=== PATIENT | female | born 1990 | race Caucasian/White ===

== ENCOUNTER → 2020-01-18 14:31 | Outpatient (BNVA) | payer OTHER, SELFPAY | PROVIDERS: PCP Physician Assistant; Visit Provider Surgery | DX: K80.10 Calculus of gallbladder with chronic cholecystitis without obstruction (principal); Z88.2 Allergy status to sulfonamides; Z88.8 Allergy status to other drugs, medicaments and biological substances; Z88.1 Allergy status to other antibiotic agents; Z91.010 Allergy to peanuts; Z91.013 Allergy to seafood; Z79.899 Other long term (current) drug therapy | CPT/HCPCS: 99212 ==

== ENCOUNTER 2020-01-27 06:28 | Day surgery (SDC) | payer OTHER, SELFPAY ==
[2020-01-24 08:51] VITALS: BMI 44.4
--- NOTE | 2020-01-25 14:33 | HO.ANESPROP2 ---
Documented by User: Jackie Cm 01/25/20 14:38 HPI - Anesthesia Eval Consult details Narrative: 29yo F for Cholecystectomy, Laparoscopic PMFSH Past Medical History Medical History Asthma Chronic calculous cholecystitis Eczema Heart murmur Family History Family History (Updated 01/18/20 @ 16:09 by Chan Pizano MD) Father Diabetes Mother Hypertension Maternal Grandmother ID (myocardial infarction) Social History Social History Smoking Status: Never smoker Advance Directives Information Provided: No Meds Allergies Allergy/AdvReac Type Severity Reaction Status Date / Time amoxicillin [AMOXICILLIN] Allergy Intermediate SWELLING Verified 01/24/20 08:54 cefaclor [From Ceclor] Allergy Intermediate SWELLING Verified 01/24/20 08:54 doxycycline Allergy Intermediate swelling Verified 01/24/20 08:54 peanut [PEANUTS] Allergy Intermediate HIVES Verified 01/24/20 08:54 shrimp [SHRIMP] Allergy Intermediate THROAT Verified 01/24/20 08:54 ITCHING Sulfa (Sulfonamide Allergy Intermediate SWELLING Verified 01/24/20 08:54 Antibiotics) sulfamethoxazole Allergy Intermediate SWELLING Verified 01/24/20 08:54 [From Bactrim] trimethoprim [From Bactrim] Allergy Intermediate CEFACLOR Verified 01/24/20 08:54 ceclor Allergy Intermediate swelling Uncoded 01/24/20 08:54 Home Medications Medication Instructions Recorded Confirmed Type albuterol sulfate 90 mcg/actuation 2 puff PO Q4H PRN 01/18/20 01/24/20 History aerosol inhaler hydrocortisone TOPICAL BID 01/24/20 History Exam Exam Date and Time: January 25, 2020 1433 Height,Weight and Vital Signs: Height 5 ft 3 in Weight 113.852 kg Pertinent Lab Results Pertinent Lab Results: Laboratory Tests 11/19/19 11/19/19 23:41 23:41 WBC 10.6 Hgb 12.6 Hct 40.0 Plt Count 327 Sodium 138 Potassium 4.1 Chloride 104 BUN 7 L Creatinine 0.69 Narrative Narrative: Echo 2017: nml study, no valve abnormalities Assessment and Plan Assessment Anesthesia Assessment: Chart Reviewed Documented by User: Salvatore Ash 01/27/20 07:16 HPI - Anesthesia Eval Consult details Narrative: No prev anesth. No Fhx of prob w anes. PMFSH Past Medical History Medical History Asthma Chronic calculous cholecystitis Eczema Heart murmur Family History Family History (Updated 01/18/20 @ 16:09 by Chan Pizano MD) Father Diabetes Mother Hypertension Maternal Grandmother ID (myocardial infarction) Social History Social History Smoking Status: Never smoker Advance Directives Information Provided: No Meds Allergies Allergy/AdvReac Type Severity Reaction Status Date / Time amoxicillin [AMOXICILLIN] Allergy Intermediate SWELLING Verified 01/24/20 08:54 cefaclor [From Ceclor] Allergy Intermediate SWELLING Verified 01/24/20 08:54 doxycycline Allergy Intermediate swelling Verified 01/24/20 08:54 peanut [PEANUTS] Allergy Intermediate HIVES Verified 01/24/20 08:54 shrimp [SHRIMP] Allergy Intermediate THROAT Verified 01/24/20 08:54 ITCHING Sulfa (Sulfonamide Allergy Intermediate SWELLING Verified 01/24/20 08:54 Antibiotics) sulfamethoxazole Allergy Intermediate SWELLING Verified 01/24/20 08:54 [From Bactrim] trimethoprim [From Bactrim] Allergy Intermediate CEFACLOR Verified 01/24/20 08:54 ceclor Allergy Intermediate swelling Uncoded 01/24/20 08:54 Home Medications Medication Instructions Recorded Confirmed Type albuterol sulfate 90 mcg/actuation 2 puff PO Q4H PRN 01/18/20 01/24/20 History aerosol inhaler hydrocortisone TOPICAL BID 01/24/20 History Exam Airway Mallampati Class: I TM Dist: >3cm Neck ROM: Full Loose/Missing/Broken Teeth: No Heart: ok Lungs: ok Assessment and Plan Assessment Anesthesia Assessment: Anesthesia Plan Discussed and Chart Reviewed Final Anesthetic Review NPO: Yes ASA Class: III Final Preanesthetic Review: No Changes in Pt Med Stat, Meds/Allgs Chart Reviewed, Consent Obtained/Reviewed and Anes Risks/Benef Reviewed Patient Risk: Intermediate Procedure Risk: Intermediate Anesthetic Plan Anesthetic Plan: GA and Agree w/ Assess. and Plan Disposition: Standard PACU
[2020-01-27] VITALS (11 sets, daily range): BP systolic 125–150; BP diastolic 69–85; PULSE 90–127; RESP 16–18; TEMP 36.2–37.2; O2SAT 92–98
[2020-01-27 05:58] LABS: UPreg QC Valid YES
[2020-01-27 05:59] LABS: Urine Pregnancy NEGATIVE (NEGATIVE)
[2020-01-27] MEDS: Lactated Ringers 1,000 ML 100 ML IVCONT (06:54)
[2020-01-27] MEDS: Acetaminophen 325 MG TABLET 650 MG PO (06:55)
[2020-01-27] MEDS: metroNIDAZOLE/NS 500 MG/100 ML PIGGYBACK 100 MG IV (06:56)
--- NOTE | 2020-01-27 07:29 | MHC.SHP ---
Pre-Procedural Eval Section A The patient is an INPATIENT: No Changes since office visit: Yes Patient answered all questions; No Cold of Flu in the past 2 weeks, No New Medical Problems and No Changes in Medication The History & Physical has been completed within 30 days and I have reviewed it.: Yes Section B Chief Complaint: Chronic Cholecystitis Allergies: Allergies Allergy/AdvReac Type Severity Reaction Status Date / Time amoxicillin [AMOXICILLIN] Allergy Intermediate SWELLING Verified 01/24/20 08:54 cefaclor [From Ceclor] Allergy Intermediate SWELLING Verified 01/24/20 08:54 doxycycline Allergy Intermediate swelling Verified 01/24/20 08:54 peanut [PEANUTS] Allergy Intermediate HIVES Verified 01/24/20 08:54 shrimp [SHRIMP] Allergy Intermediate THROAT Verified 01/24/20 08:54 ITCHING Sulfa (Sulfonamide Allergy Intermediate SWELLING Verified 01/24/20 08:54 Antibiotics) sulfamethoxazole Allergy Intermediate SWELLING Verified 01/24/20 08:54 [From Bactrim] trimethoprim [From Bactrim] Allergy Intermediate CEFACLOR Verified 01/24/20 08:54 ceclor Allergy Intermediate swelling Uncoded 01/24/20 08:54 Plan Diagnosis/Plan: Unchanged Patient has been examined and remains a candidate for the planned procedure
--- NOTE | 2020-01-27 07:41 | P.BOP_ITS ---
Brief Operative Note Date of procedure: 01/27/20 Pre-op diagnosis: Chronic cholecystitis, cholelithiasis Post-op diagnosis: same Procedure: Laparoscopic cholecystectomy Implants: none Surgeon: Chan Pizano MD Anesthesia: MARIANA Spinneret Person: Debora Moore Estimated blood loss (mL): 10 Pathology: other (GALLBLADDER) Condition: stable Disposition: PACU
--- NOTE | 2020-01-27 09:06 | W.PM.OPN ---
Operative Note Operative Note Date of Service: 01/27/20 Narrative: Preoperative diagnosis: Chronic cholecystitis Postoperative diagnosis same Procedure: Laparoscopic cholecystectomy Surgeon: Chan Pizano MD Automotive Manufacturer: ANIKET Brush Indications for procedure: 29-year-old female with complaints of abdominal pain intermittently in the right upper quadrant associated with fatty food intake. Patient underwent ultrasound which revealed multiple gallstones patient presents today for laparoscopic cholecystectomy. Operative findings: Patient was found to have a moderately inflamed gallbladder with no adhesions. Multiple large gallstones were noted within the gallbladder. Specimen: Gallbladder Estimated blood loss: 10 mL Complications: Non Procedure details: Patient was brought to the OR and placed in a supine position. After administering general anesthesia the patient's abdomen was prepped with ChloraPrep and draped in a sterile fashion. Local anesthesia consisting of 0.75% Sensorcaine with epinephrine was infiltrated in a periumbilical region. A 5 mm incision was made above the umbilicus in a transverse fashion. The Veress needle was then inserted while elevating abdominal cavity with towel clips. After positive drop test the abdomen was insufflated to a pressure of 15 mm of mercury. The Veress needle was then removed and a 5 mm trocar inserted. The camera was inserted in the abdomen explored. A 12 mm trocar was then placed in the epigastrium and 2 5 mm trocars placed in the right upper quadrant. The patient was placed in reverse Trendelenburg positioning and rotated to the left. The gallbladder was grasped with the fundus and retracted cephalad.. The infundibulum Was then grasped and retracted away from the liver bed. The Dolphin dissected was then used to dissect the peritoneum off the infundibulum to reveal the junction with the cystic duct. Cystic artery was noted slightly medial and posterior to the cystic duct. After obtaining a critical view the cystic duct was doubly clipped and divided. The cystic artery was then doubly clipped and divided. The gallbladder was then dissected off the liver bed using electrocautery with an L hook. Hemostasis was assured all times using the electrocautery. When the gallbladder is completely dissected off the liver bed was placed in an Endo-Catch bag and brought out through the epigastric incision. The gallbladder was sent to pathology for further examination. The abdomen was then re-examined. The liver bed was irrigated and suctioned dry. No bleeding or bile leak could be identified. CO2 was then evacuated and all trocars removed. Fascia was closed at the epigastric incision using a [id number] 0 Polysorb suture. Skin was closed in all incisions using a subcuticular 4 0 Polysorb suture. Sterile dressings consisting of Steri-Strips, 2 x 2 gauze, and Tegaderm were then applied. The patient tolerated the procedure well. Sponge instrument and needle counts reported as correct. The patient was transferred to PACU in stable condition.
[2020-01-27] MEDS: ondansetron HCL 4 MG/2 ML VIAL IVPUSH (09:10)
[2020-01-27] MEDS: oxyCODONE HCl Immed Release 5 MG TABLET PO (09:12)
--- NOTE | 2020-01-27 10:37 | HO.POSTANES ---
Post Anesthesia Evaluation Post Anesthesia Evaluation Vital Signs: Vital Signs Temp Pulse Resp BP Pulse Ox 01/27/20 10:24 102 H 16 132/74 96 01/27/20 10:09 91 16 139/72 98 01/27/20 09:54 97 16 128/84 98 01/27/20 09:39 94 16 150/71 H 98 01/27/20 09:24 90 18 125/75 98 01/27/20 09:09 91 16 145/81 H 96 01/27/20 09:04 98 18 141/84 H 97 01/27/20 08:59 101 H 18 149/69 H 96 01/27/20 08:54 99.0 F 127 H 18 130/85 92 01/27/20 06:29 98.6 F 93 18 136/83 97 Anesthesia: General Endotracheal-GETA Mental Status: Awake Pain Control: Satisfactory Nausea/Vomiting: Mild Hydration: Adequate Anesthesia-Related Issues: No Anes. Related Issues
== END 2020-01-27 11:21 | disposition home or self-care (01) ==
PROVIDERS: Nurse Practitioner; Visit Provider Surgery
PROC: 0FT44ZZ Resection of Gallbladder, Percutaneous Endoscopic Approach (ICD-10-PCS; CPT 47562; principal; 2020-01-27 07:30)
DX: K80.10 Calculus of gallbladder with chronic cholecystitis without obstruction (principal); J45.909 Unspecified asthma, uncomplicated; Z79.899 Other long term (current) drug therapy; Z88.1 Allergy status to other antibiotic agents; Z88.2 Allergy status to sulfonamides; Z88.8 Allergy status to other drugs, medicaments and biological substances; L30.9 Dermatitis, unspecified
CPT/HCPCS: 47562; 81025; 88304; J1100; J1170; J2250; J2405; J3010

== ENCOUNTER → 2020-02-04 09:41 | Outpatient (BNVA) | payer OTHER, SELFPAY | PROVIDERS: Visit Provider Surgery | DX: Z09 Encounter for follow-up examination after completed treatment for conditions other than malignant neoplasm (principal); Z87.19 Personal history of other diseases of the digestive system; Z90.49 Acquired absence of other specified parts of digestive tract | CPT/HCPCS: 99212 ==

== ENCOUNTER 2020-03-05 22:44 | Emergency (ER) | payer OTHER, SELFPAY ==
[2020-03-05 22:51] VITALS: BP 134/81; BP 138/32; PULSE 112; PULSE 120; RESP 15; TEMP 36.7; O2SAT 98; O2SAT 99; BMI 40.7
--- NOTE | 2020-03-05 22:59 | ED_ITS ---
HPI - SOB/Dyspnea General Chief Complaint: Dyspnea Stated Complaint: ASTHMA (98%RA),NO COVID SX PER EMS Time Seen by Provider: 03/05/20 22:49 Source: patient Mode of arrival: EMS Limitations: no limitations History of Present Illness HPI Narrative: Patient comes emergency room complaining of an asthma exacerbation. Patient states she has been having shortness of breath and wheezing for 3 days. Patient tried using her albuterol pump with no relief. Patient states she usually responds well to an albuterol nebulizations, however she ran out of her albuterol neb medication several months ago. Patient came by ambulance, she did not get any Solu-Medrol or nebulization treatment, as patient has been speaking in full sentences and has an oxygen saturation of 99% on room air. Related Data Home Medications Medication Instructions Recorded Confirmed albuterol sulfate 90 mcg/actuation 2 puff PO Q4H PRN 01/18/20 03/05/20 aerosol inhaler hydrocortisone 1 appl TOPICAL BID 01/24/20 03/05/20 Previous Rx's Medication Instructions Recorded albuterol sulfate 2.5 mg INHALATION Q4-6H PRN #90 ml 03/06/20 prednisone 50 mg PO DAILY #4 tab 03/06/20 Allergies Allergy/AdvReac Type Severity Reaction Status Date / Time amoxicillin [AMOXICILLIN] Allergy Intermediate SWELLING Verified 03/05/20 22:57 cefaclor [From Ceclor] Allergy Intermediate SWELLING Verified 03/05/20 22:57 doxycycline Allergy Intermediate swelling Verified 03/05/20 22:57 peanut [PEANUTS] Allergy Intermediate HIVES Verified 03/05/20 22:57 shrimp [SHRIMP] Allergy Intermediate THROAT Verified 03/05/20 22:57 ITCHING Sulfa (Sulfonamide Allergy Intermediate SWELLING Verified 03/05/20 22:57 Antibiotics) sulfamethoxazole Allergy Intermediate SWELLING Verified 03/05/20 22:57 [From Bactrim] trimethoprim [From Bactrim] Allergy Intermediate CEFACLOR Verified 03/05/20 22:57 ceclor Allergy Intermediate swelling Uncoded 03/05/20 22:57 Review of Systems Review of Systems: Constitutional : No Weight loss, No Fever, No Chills, No Night Sweats, No Fatigue, No Malaise ENT/Mouth : No Hearing loss, No Ear Pain, No Nasal Congestion, No Sinus Pain, No Hoarseness, No sore throat, No Rhinorrhea, No Swallowing Difficulty Eyes: No Eye Pain, No Swelling, No Redness, No Foreign Body, No Discharge, No Vision Changes Cardiovascular : No Chest Pain, No SOB, No Dyspnea on Exertion, No Orthopnea, No Edema, No Palpitations Respiratory : No Cough, No Sputum, complaining of wheezing and shortness of breath Gastrointestinal : No Nausea, No Vomiting, No Diarrhea, No Constipation, No abdominal Pain, No Hematochezia, No Melena Genitourinary : no irregular bleeding, No Dysuria, No Urinary Frequency, No Hematuria, No Urinary Incontinence, No Urgency, No Flank Pain, No Urinary Flow Changes, No Hesitancy Musculoskeletal : No joint pain, No Myalgias, No Joint Swelling Skin : No Skin Lesions, No rash Neuro : No Weakness, No Numbness, No Paresthesias, No Loss of Consciousness, No Dizziness, No Headache Psych : No Anxiety/Panic, No Depression, No SI/HI/AH/VH, No Social Issues, Heme/Lymph: No Bruising, No Bleeding,No Lymphadenopathy Endocrine : No Polyuria, No Polydipsia, No Temperature Intolerance [facility] Past Medical History Medical History Asthma Chronic calculous cholecystitis Eczema Heart murmur Surgical History History of laparoscopic cholecystectomy (~01/27/20) Family History Family History Father Diabetes Mother Hypertension Maternal Grandmother [place] (myocardial infarction) Social History Social History Smoking Status: Never smoker Use of substances other than those prescribed or required for medical reasons: No Advance Directives: No Advance Directives Information Provided: No Physical Exam Vital Signs: Vital Signs: Last Vital Signs Temp 98.1 F 03/05/20 22:51 Pulse 103 H 03/05/20 23:19 Resp 15 03/05/20 22:51 BP 134/81 03/05/20 22:51 Pulse Ox 99 03/05/20 22:51 Body Mass Index 40.7 Appearance: Alert. Oriented X3. No acute distress. Eyes: Pupils equal, round and reactive to light. ENT: Pharynx normal. Neck: Normal inspection. Neck supple. No lymph nodes noted. No crepitus CVS: Normal heart rate and rhythm. Pulses normal. Normal S1 and S2 Respiratory: No respiratory distress. Breath sounds normal. Mild bilateral wheezing, speaking in full sentences, oxygen saturation 99% on room air Abdomen: Soft and nontender. No rigidity. No distention. good BS x4 Skin: Skin warm and dry. Normal skin color. Normal skin turgor. Extremities: No lower extremity edema. No lower extremity edema. No Lacerations. No Rash Neuro: Oriented X 3. No motor deficit. No sensory deficit. Moving all extermities. No slurred speech. Course Course Course Narrative: After neb treatment and IV Solu-Medrol, patient states she feels completely normal now. On physical exam prior to discharge patient's oxygen saturation is 100% on room air, no longer wheezing, speaking in full sentences. Discharge Plan Discharge Clinical Impression: Asthma with exacerbation Qualifiers: Asthma severity: unspecified severity Asthma persistence: unspecified Qualified Code(s): J45.901 - Unspecified asthma with (acute) exacerbation Patient Disposition: Home, Self-Care Instructions: Asthma (ED) Prescriptions: New prednisone 50 mg tablet 50 mg PO DAILY Qty: 4 RF: 0 albuterol sulfate 1.25 mg/3 mL solution for nebulization 2.5 mg inhalation Q4-6H PRN (Reason: shortness of breath or wheezing) Qty: 90 RF: 0 No Action hydrocortisone 2.5 % ointment 1 appl topical BID RF: 0 albuterol sulfate 90 mcg/actuation HFA aerosol inhaler 2 puff PO Q4H PRN (Reason: Shortness Of Breath) RF: 0
[2020-03-05] MEDS: methylPREDNISolone Sod Succ/PF 125 MG/2 ML VIAL IVPUSH (23:10)
[2020-03-05] MEDS: Albuterol Sulfate (0.083%) 2.5 MG/3 ML VIAL.NEB 5 MG INHALE (23:16)
[2020-03-05 23:19] VITALS: PULSE 103; O2SAT 98
== END 2020-03-06 00:41 | disposition home or self-care (01) ==
PROVIDERS: Emergency Provider Emergency Medicine
DX: J45.901 Unspecified asthma with (acute) exacerbation (principal); Z79.899 Other long term (current) drug therapy
CPT/HCPCS: 94640; 96374; 99284; J2930

== ENCOUNTER 2020-04-13 11:14 | Outpatient (REF) | payer OTHER, SELFPAY | END 2020-04-13 11:15 | disposition home or self-care (01) | LOC: HO.LAB 11:14 | PROVIDERS: Visit Provider Nurse Practitioner Family | DX: R05 Cough (principal); Z20.822 Contact with and (suspected) exposure to COVID-19 | CPT/HCPCS: 36415; U0003 ==

== ENCOUNTER 2020-04-13 11:16 | Outpatient (REF) | payer OTHER, SELFPAY ==
--- NOTE | 2020-04-13 11:19 | XR_ITS ---
EXAMINATION: XR CHEST CLINICAL INFORMATION: Cough COMPARISON: 11/06/2019 TECHNIQUE: 2 views of the chest were obtained. FINDINGS: The lungs are well expanded. There is no focal consolidation, edema, or effusion. No pneumothorax. The cardiomediastinal silhouette is within normal limits. No acute osseous abnormality. XR/XR chest 2V IMPRESSION: Clear lungs.
== END 2020-04-13 11:17 | disposition home or self-care (01) ==
LOC: HO.HMGCX 11:16
PROVIDERS: PCP Internal Medicine; Visit Provider Nurse Practitioner Family
DX: R05 Cough (principal); Z20.822 Contact with and (suspected) exposure to COVID-19
CPT/HCPCS: 71046

== ENCOUNTER 2020-09-28 11:56 | Emergency (ER) | payer OTHER, SELFPAY ==
--- NOTE | ~2020-09-28 | US_ITS ---
EXAMINATION: US RETROPERITONEAL LIMITED (RENAL ONLY) CLINICAL INFORMATION: Right lower quadrant abdominal pain. COMPARISON: None TECHNIQUE: Routine retroperitoneal ultrasound imaging of kidneys is performed FINDINGS: RIGHT KIDNEY: 12.0 x 5.8 x 4.9 cm (SAG x AP x TRV). The kidney is normal in size, contour, and echogenicity. Renal cortical thickness is normal. No calculi or focal parenchymal lesions. No hydronephrosis. LEFT KIDNEY: 13.6 x 6.1 x 4.9 cm (SAG x AP x TRV). The kidney is normal in size, contour, and echogenicity. Renal cortical thickness is normal. No calculi or focal parenchymal lesions. No hydronephrosis. US/US renal BI IMPRESSION: Unremarkable renal ultrasound..
--- NOTE | ~2020-09-28 | US_ITS ---
Indication: Right lower quadrant pain EXAMINATION: Transabdominal transvaginal pelvic ultrasound. Real-time imaging by the roving machine operator. Comparison is made to previous exam dated 03/22/2019 The uterus is measuring 8.3 x 4 x 5.3 cm. Anteverted. Anteflexed. The endometrial thickness is 7 mm. Poorly defined. No evidence of fibroid change. The right ovary is measuring 2.1 x 1.2 x 1.9 cm. Volume 2.5 mL. Normal vascularity. Left ovary is 1.7 x 1 x 1.2 cm. Volume 1.1 cm. Normal-appearing. Normal vascularity. There is no free fluid or obvious adnexal mass. US/US pelvic and transvaginal IMPRESSION: Unremarkable pelvic ultrasound. The ovaries appear to be within normal limits. No free fluid or obvious adnexal mass
--- NOTE | ~2020-09-28 | CT_ITS ---
EXAMINATION: CT ABDOMEN AND PELVIS WITHOUT CONTRAST CLINICAL INFORMATION: 30-year-old female with right lower quadrant pain. Question appendicitis. COMPARISON: Same day pelvic and renal ultrasound. CT abdomen pelvis March 22, 2019 TECHNIQUE: Multidetector volumetric imaging was performed from the superior aspect of the liver through the pubic symphysis. Sagittal and coronal reformatted images were obtained on the technologist's workstation. This CT examination was performed using dose optimization techniques as appropriate, variously including the following: *Automated exposure control *Adjustment of mA and/or kV according to patient size (this includes techniques or standardized protocols for targeted exams where dose is matched to indication/reason for exam; i.e. extremities or head) *Use of iterative reconstruction technique DLP: 1037 mGy-cm FINDINGS: Visualized lung bases are well aerated. The liver is normal in size but demonstrates diffusely decreased attenuation. The gallbladder is surgically absent. The pancreas, spleen and adrenal glands are unremarkable. Symmetrically sized kidneys. No renal calculi or hydronephrosis bilaterally. Normal caliber loops of small and large bowel. Normal appendix. Normal caliber abdominal aorta. No retroperitoneal lymphadenopathy. The bladder is decompressed and therefore not accurately evaluated. Unremarkable CT appearance of the uterus. No gross free pelvic fluid. No inguinal lymphadenopathy. No acute osseous abnormality. CT/CT abdomen pelvis wo con IMPRESSION: 1. Normal appendix. 2. Diffusely decreased liver attenuation suggesting hepatic steatosis. Correlation with liver enzymes recommended.
--- NOTE | ~2020-09-28 | US_ITS ---
Indication: Right lower quadrant pain EXAMINATION: Transabdominal transvaginal pelvic ultrasound. Real-time imaging by the aix system administrator. Comparison is made to previous exam dated 03/22/2019 The uterus is measuring 8.3 x 4 x 5.3 cm. Anteverted. Anteflexed. The endometrial thickness is 7 mm. Poorly defined. No evidence of fibroid change. The right ovary is measuring 2.1 x 1.2 x 1.9 cm. Volume 2.5 mL. Normal vascularity. Left ovary is 1.7 x 1 x 1.2 cm. Volume 1.1 cm. Normal-appearing. Normal vascularity. There is no free fluid or obvious adnexal mass. US/US pelvic ovarian doppler IMPRESSION: Unremarkable pelvic ultrasound. The ovaries appear to be within normal limits. No free fluid or obvious adnexal mass
[2020-09-28 11:59] VITALS: BP 152/84; PULSE 100; RESP 18; TEMP 36.7; O2SAT 99; BMI 47.8
[2020-09-28] MEDS: Acetaminophen 325 MG TABLET 650 MG PO (14:19)
--- NOTE | 2020-09-28 14:58 | ED_ITS ---
HPI - Abdominal Pain General Chief Complaint: Abdominal Pain Stated Complaint: back pain Time Seen by Provider: 09/28/20 13:56 Source: patient Mode of arrival: ambulatory Limitations: no limitations History of Present Illness HPI narrative: [id number] with PMHx of ovarian cyst, heart murmur, asthma, eczema and chronic calculous cholecystitis presenting to the ED with complaints of quadrant/suprapubic abdominal pain/right back pain for the past week worse today she believes it might be her ovarian cyst that is causing her pain. She denies any fevers, chills, nausea, vomiting, chest pain, shortness of breath, abnormal vaginal discharge, vaginal bleeding, dysuria, hematuria, diarrhea, constipation or any other symptoms complaints or concerns at this time MD elicited complaint: abdominal pain Pertinent past history: other (Ovarian cyst) Onset (ago): week(s) (One week worse today) Pain Consistency: constant Location: RLQ and suprapubic Severity: moderate Quality: cramping and aching Radiation: none Migration to: no migration Exacerbating factors: nothing Relieving factors: nothing Associated symptoms: denies other symptoms Related Data Home Medications Medication Instructions Recorded Confirmed albuterol sulfate 90 mcg/actuation 2 puff PO Q4H PRN 01/18/20 06/13/20 aerosol inhaler hydrocortisone 1 appl TOPICAL BID 01/24/20 06/13/20 Previous Rx's Medication Instructions Recorded Xopenex HFA 45 mcg/actuation 2 puff INHALATION Q4-6H PRN 30 03/24/20 aerosol inhaler Days #15 g NS albuterol sulfate 1.25 mg/3 mL 2.5 mg INHALATION Q4-6H PRN #90 ml 04/19/20 solution for nebulization cetirizine 10 mg capsule 10 mg PO DAILY PRN 90 Days #90 cap 06/13/20 oxycodone 5 mg PO Q8H PRN #10 tab 09/28/20 Allergies Allergy/AdvReac Type Severity Reaction Status Date / Time amoxicillin [AMOXICILLIN] Allergy Intermediate SWELLING Verified 06/13/20 09:50 cefaclor [From Ceclor] Allergy Intermediate SWELLING Verified 06/13/20 09:50 doxycycline Allergy Intermediate swelling Verified 06/13/20 09:50 peanut [PEANUTS] Allergy Intermediate HIVES Verified 06/13/20 09:50 shrimp [SHRIMP] Allergy Intermediate THROAT Verified 06/13/20 09:50 ITCHING Sulfa (Sulfonamide Allergy Intermediate SWELLING Verified 06/13/20 09:50 Antibiotics) Review of Systems Review of Systems Constitutional : No Weight loss, No Fever, No Chills, No Night Sweats, No Fatigue, No Malaise ENT/Mouth: No ear pain, No sore throat, No Difficulty swallowing Cardiovascular : No Chest Pain, No SOB, No Dyspnea on Exertion, No Orthopnea, No Edema, No Palpitations Respiratory : No Cough, No Sputum, No Wheezing, No Dyspnea Gastrointestinal : Positive Abdominal pain, No Nausea, No Vomiting, No Diarrhea, No blood streaked emesis, No coffee-ground emesis, No gross hematemesis, No blood streak stool, No gross hematochezia, No Melena Genitourinary : No irregular bleeding, No Dysuria, No Urinary Frequency, No Hematuria,No Urinary Incontinence, No Urgency, No Flank Pain Musculoskeletal : No joint pain, No Myalgias, No Joint Swelling Skin : No Skin Lesions, No rash Neuro : No Weakness, No Numbness, No Paresthesias, No Loss of Consciousness, NoDizziness, No Headache Psych : No Social Issues, Heme/Lymph: No Bruising, No Bleeding,No Lymphadenopathy Endocrine : No Polyuria, No Polydipsia, No Temperature Intolerance Yes all other systems are reviewed and are negative Physical Exam Vital Signs: Vital Signs: Last Vital Signs Temp 98.2 F 09/28/20 17:49 Pulse 90 09/28/20 17:49 Resp 18 09/28/20 17:49 BP 108/69 09/28/20 17:49 Pulse Ox 98 09/28/20 17:49 Body Mass Index 47.8 vital signs have been reviewed as normal and appeared to be correct. Blood pressure hypertensive 152/84. Heart rate normal. Respiration rate normal. Temperature normal. Oxygen saturation normal. Appearance: Alert. Oriented X3. No acute distress. Head: Normal external exam. Normocephalic. Eyes: PERRLA. EOMI. Conjunctiva and sclera normal. Eyelids normal. ENT: Pharynx normal. Uvula midline. Moist mucous membranes. Neck: Normal inspection. Neck supple. FROM. No adenopathy. No meningeal signs. CVS: Normal heart rate and rhythm. Heart sound normal. No murmurs noted. Pulses normal throughout. Respiratory: No respiratory distress. Painless inspiration. Breath sounds normal. No wheezes/rales/rhonchi noted. Chest nontender. No accessory muscle usage noted or decreased air movement noted. Abdomen: Soft and mild tenderness to palpation to right lower quadrant/suprapubic area. Nondistended. No guarding. No rigidity. Bowel sounds normal in all 4 quadrants. No distention noted. No organomegaly noted. No visible injury noted. No rebound tenderness. Negative Rovsing sign. Negative obturator's sign. Negative psoas sign. Negative Vega sign. Back: Positive right CVA tenderness. No left CVA tenderness. Full range of motion noted. Skin: Skin warm and dry. Normal skin color. Normal skin turgor. No rashes/lesions/lacerations noted. Extremities: Extremities exhibit normal range of motion. Extremities nontender. Neuro: Oriented X 3. No motor deficit. No sensory deficit. Reflexes normal. Normal steady gait. Course Course Course Narrative: 14:05pm - [id number] with PMHx of ovarian cyst, heart murmur, asthma, eczema and chronic calculous cholecystitis presenting to the ED with complaints of quadrant/suprapubic abdominal pain/right back pain for the past week worse today she believes it might be her ovarian cyst that is causing her pain. Plan: Labs, UA, pelvic/ovarian Doppler/renal ultrasound. Provide 650 mg of p.o. Tylenol then re-evaluate. Reevaluation(s) Reevaluation #1: - labs returned and all within normal limits. UA within normal limits no evidence of UTI. UHCG negative for . Ovarian Doppler ultrasound negative for any acute processes. Renal ultrasound negative for any acute processes. - will obtain a CT scan of abdomen pelvis without contrast evaluate the patient's appendix if negative will DC home with symptomatic treatment. Patient understands agrees with this plan. Time: 18:00 Reevaluation #2: - CT scan abdomen and pelvis without contrast revealed chronic changes no acute processes and she had a normal appendix. Unknown cause of the patient's abdominal pain. Will DC home with symptomatic treatments runs return if any new or worsening symptoms to follow up with primary care provider. Patient understands agrees with this plan. Time: 20:04 [facility] - Abdominal Pain Medical Records Attestation: I reviewed the patient's medical records. Lab Data Attestation: I reviewed the patient's lab results. Result diagrams: 09/28/20 18:58 09/28/20 18:58 Labs: Lab Results 09/28/20 09/28/20 09/28/20 Range/Units 15:48 15:48 18:58 WBC 11.2 H (4.8-10.8) X10*3/uL RBC 4.70 (4.20-5.50) X10*6/uL Hgb 12.1 (12.0-16.0) g/dl Hct 37.9 (37-47) % MCV 80.6 (80-98) fL MCH 25.7 L (27.0-33.0) pg MCHC 31.9 (31.0-35.0) g/dl RDW 13.8 (11.0-16.0) % Plt Count 316 (160-400) X10*3/uL MPV 9.6 (9.4-12.3) fL Immature Gran % (Auto) 0.4 (0.0-0.4) % Neut % (Auto) 69.6 (45-73) % Lymph % (Auto) 20.6 (20-40) % [place] % (Auto) 6.0 (2-11) % Eos % (Auto) 3.2 (0-4) % Baso % (Auto) 0.2 (0-2) % Lymph # (Auto) 2.3 (1.2-4.9) X10*3/uL [place] # (Auto) 0.7 (0.1-1.2) X10*3/uL Eos # (Auto) 0.4 (0.0-0.4) X10*3/uL Baso # (Auto) 0.0 (0.0-0.2) X10*3/uL Abs Immat Gran (auto) 0.04 H (0.00-0.03) X10*3/uL Absolute Neuts (auto) 7.8 (2.0-8.3) X10*3/uL Absolute Nucleated RBC 0.000 (0.0-0.012) X10*3/uL Nucleated RBC % (auto) 0.0 (0.0-0.2) /100WBC Sodium (135-145) mmol/L Potassium (3.3-5.1) mmol/L Chloride (96-108) mmol/L Carbon Dioxide (22-29) mmol/L Anion Gap (12-20) BUN (9-16) mg/dL Creatinine (0.5-1.4) mg/dL Estim Creat Clear Calc Estimated GFR Random Glucose (60-115) mg/dL Calcium (8.4-10.2) mg/dL Magnesium (1.6-2.6) mg/dL Total Bilirubin (0.0-1.0) mg/dL AST (5-31) U/L ALT (0-31) U/L Alkaline Phosphatase (39-117) U/L Total Protein (6.5-8.0) g/dL Albumin (3.5-5.0) g/dL Beta HCG, Quant mIU/mL Urine Color YELLOW Urine Appearance CLEAR Urine pH 6.0 (5.0-8.0) Ur Specific [place] >= 1.030 H (1.005-1.025) Urine Protein NEG (NEG-TRACE) MG/DL Urine Glucose (UA) NEG (NEG) MG/DL Urine Ketones NEG (NEG) MG/DL Urine Blood NEG (NEG) Urine Nitrite NEG (NEG) Ur Leukocyte Esterase NEG (NEG) Urine Test NEGATIVE (NEGATIVE) 09/28/20 09/28/20 Range/Units 18:58 18:58 WBC (4.8-10.8) X10*3/uL RBC (4.20-5.50) X10*6/uL Hgb (12.0-16.0) g/dl Hct (37-47) % MCV (80-98) fL MCH (27.0-33.0) pg MCHC (31.0-35.0) g/dl RDW (11.0-16.0) % Plt Count (160-400) X10*3/uL MPV (9.4-12.3) fL Immature Gran % (Auto) (0.0-0.4) % Neut % (Auto) (45-73) % Lymph % (Auto) (20-40) % [place] % (Auto) (2-11) % Eos % (Auto) (0-4) % Baso % (Auto) (0-2) % Lymph # (Auto) (1.2-4.9) X10*3/uL [place] # (Auto) (0.1-1.2) X10*3/uL Eos # (Auto) (0.0-0.4) X10*3/uL Baso # (Auto) (0.0-0.2) X10*3/uL Abs Immat Gran (auto) (0.00-0.03) X10*3/uL Absolute Neuts (auto) (2.0-8.3) X10*3/uL Absolute Nucleated RBC (0.0-0.012) X10*3/uL Nucleated RBC % (auto) (0.0-0.2) /100WBC Sodium 141 (135-145) mmol/L Potassium 4.0 (3.3-5.1) mmol/L Chloride 106 (96-108) mmol/L Carbon Dioxide 27 (22-29) mmol/L Anion Gap 12 (12-20) BUN 8 L (9-16) mg/dL Creatinine 0.62 (0.5-1.4) mg/dL Estim Creat Clear Calc 169.9 Estimated GFR > 60 Random Glucose 86 (60-115) mg/dL Calcium 9.0 (8.4-10.2) mg/dL Magnesium 2.2 (1.6-2.6) mg/dL Total Bilirubin 0.5 (0.0-1.0) mg/dL AST 23 (5-31) U/L ALT 25 (0-31) U/L Alkaline Phosphatase 79 (39-117) U/L Total Protein 6.7 (6.5-8.0) g/dL Albumin 3.9 (3.5-5.0) g/dL Beta HCG, Quant < 2 mIU/mL Urine Color Urine Appearance Urine pH (5.0-8.0) Ur Specific [place] (1.005-1.025) Urine Protein (NEG-TRACE) MG/DL Urine Glucose (UA) (NEG) MG/DL Urine Ketones (NEG) MG/DL Urine Blood (NEG) Urine Nitrite (NEG) Ur Leukocyte Esterase (NEG) Urine Test (NEGATIVE) Imaging Data Ovarian/Doppler ultrasound: Attestation: I personally reviewed and interpreted this imaging study as follows: Radiologist's impression: The uterus is measuring 8.3 x 4 x 5.3 cm. Anteverted. Anteflexed. The endometrial thickness is 7 mm. Poorly defined. No evidence of fibroid change. The right ovary is measuring 2.1 x 1.2 x 1.9 cm. Volume 2.5 mL. Normal vascularity. Left ovary is 1.7 x 1 x 1.2 cm. Volume 1.1 cm. Normal-appearing. Normal vascularity. There is no free fluid or obvious adnexal mass. US/US pelvic and transvaginal IMPRESSION: Unremarkable pelvic ultrasound. The ovaries appear to be within normal limits. No free fluid or obvious adnexal mass Renal ultrasound: Attestation: I personally reviewed and interpreted this imaging study as follows: Radiologist's impression: FINDINGS: RIGHT KIDNEY: 12.0 x 5.8 x 4.9 cm (SAG x AP x TRV). The kidney is normal in size, contour, and echogenicity. Renal cortical thickness is normal. No calculi or focal parenchymal lesions. No hydronephrosis. LEFT KIDNEY: 13.6 x 6.1 x 4.9 cm (SAG x AP x TRV). The kidney is normal in size, contour, and echogenicity. Renal cortical thickness is normal. No calculi or focal parenchymal lesions. No hydronephrosis. US/US renal BI IMPRESSION: Unremarkable renal ultrasound.. CT scan abdomen and pelvis without IV contrast: Attestation: I personally reviewed and interpreted this imaging study as follows: Radiologist's impression: FINDINGS: Visualized lung bases are well aerated. The liver is normal in size but demonstrates diffusely decreased attenuation. The gallbladder is surgically absent. The pancreas, spleen and adrenal glands are unremarkable. Symmetrically sized kidneys. No renal calculi or hydronephrosis bilaterally. Normal caliber loops of small and large bowel. Normal appendix. Normal caliber abdominal aorta. No retroperitoneal lymphadenopathy. The bladder is decompressed and therefore not accurately evaluated. Unremarkable CT appearance of the uterus. No gross free pelvic fluid. No inguinal lymphadenopathy. No acute osseous abnormality. CT/CT abdomen pelvis wo con IMPRESSION: 1. Normal appendix. 2. Diffusely decreased liver attenuation suggesting hepatic steatosis. Correlation with liver enzymes recommended. Discharge Plan Discharge Clinical Impression: Abdominal pain Patient Disposition: Home, Self-Care Instructions: Abdominal Pain (ED) Prescriptions: New oxycodone 5 mg tablet 5 mg PO Q8H PRN (Reason: pain) Qty: 10 RF: 0 No Action levalbuterol tartrate [Xopenex HFA] 45 mcg/actuation HFA aerosol inhaler 2 puff inhalation Q4-6H PRN (Reason: shortness of breath) 30 Days Qty: 15 RF: 8 albuterol sulfate 1.25 mg/3 mL solution for nebulization 2.5 mg inhalation Q4-6H PRN (Reason: shortness of breath or wheezing) Qty: 90 RF: 6 hydrocortisone 2.5 % ointment 1 appl topical BID RF: 0 Allergy Relief (cetirizine) 10 mg capsule 10 mg PO DAILY PRN (Reason: allergy symptoms) 90 Days Qty: 90 RF: 3 albuterol sulfate 90 mcg/actuation HFA aerosol inhaler 2 puff PO Q4H PRN (Reason: Shortness Of Breath) RF: 0 Referrals: Physician,Unknown [Primary Care Provider] - 2 days (your pcp) Print Language: Arabic [facility] Past Medical History Attestation statement: The following information was validated with the patient. Medical History Asthma Chronic calculous cholecystitis Eczema Family history of diabetes mellitus Heart murmur Obese Surgical History History of laparoscopic cholecystectomy (~01/27/20) Family History Family History Father Diabetes Mother Hypertension Maternal Grandmother [place] (myocardial infarction) Son In good health Son In good health Son In good health Daughter In good health Social History Social History Alcohol intake: never Smoked in Last 30 Days: No Use of substances other than those prescribed or required for medical reasons: No Advance Directives: No Advance Directives Information Provided: No
[2020-09-28 16:00] LABS: Glucose Urine UA NEG (NEG); Leukocyte Esterase Urine NEG (NEG); Nitrite Urine NEG (NEG); Specific Gravity - Urine >= 1.030 (1.005-1.025); Urine Blood NEG (NEG); Urine Ketones NEG (NEG); Urine Protein NEG (NEG-TRACE)
[2020-09-28 16:05] LABS: Appearance Urine CLEAR; Color Urine YELLOW; UPreg QC Valid YES; Urine Pregnancy NEGATIVE (NEGATIVE)
--- NOTE | 2020-09-28 16:21 | PC.NURSE ---
1600 first conact with patient. skin pwd. no vomiting. c/o rlq pain x 4 days. u/a provided and pt aware of plan for U/S. NAD>
[2020-09-28 17:49] VITALS: BP 108/69; PULSE 90; RESP 18; TEMP 36.8; O2SAT 98
--- NOTE | 2020-09-28 17:50 | PC.NURSE ---
rn reports increased RLQ pain. is teary. this rn to approach provder for pain meds.
[2020-09-28] MEDS: oxyCODONE HCl Immed Release 5 MG TABLET PO (18:35)
[2020-09-28 19:04] LABS: MANUAL DIFF FLAG NO
[2020-09-28 19:06] LABS: Basophils Percent Auto 0.2 % (0-2); Eosinophils Absolute Auto 0.4 X10*3/uL (0.0-0.4); Eosinophils Percent Auto 3.2 % (0-4); Hematocrit 37.9 % (37-47); Hemoglobin 12.1 g/dl (12.0-16.0); Imm Gran Abs Auto 0.04 X10*3/uL (0.00-0.03); Imm Gran Pct Auto 0.4 % (0.0-0.4); Lymphocytes Absolute Auto 2.3 X10*3/uL (1.2-4.9); Lymphocytes Percent Auto 20.6 % (20-40); Mean Corpuscular HGB Conc 31.9 g/dl (31.0-35.0); Mean Corpuscular Hemoglobin 25.7 pg (27.0-33.0); Mean Corpuscular Volume 80.6 fL (80-98); Mean Platelet Volume 9.6 fL (9.4-12.3); Monocytes Absolute Auto 0.7 X10*3/uL (0.1-1.2); Neutrophils Absolute Auto 7.8 X10*3/uL (2.0-8.3); Neutrophils Percent Auto 69.6 % (45-73); Platelet Count 316 X10*3/uL (160-400); Red Cell Distribution Width 13.8 % (11.0-16.0); White Blood Count 11.2 X10*3/uL (4.8-10.8)
[2020-09-28 19:28] LABS: Alanine Aminotransferase 25 U/L (0-31); Albumin Level 3.9 g/dL (3.5-5.0); Alkaline Phosphatase 79 U/L (39-117); Anion Gap 12 (12-20); Aspartate Amino Transferase 23 U/L (5-31); Bilirubin Total 0.5 mg/dL (0.0-1.0); Blood Urea Nitrogen 8 mg/dL (9-16); Carbon Dioxide 27 mmol/L (22-29); Chloride 106 mmol/L (96-108); Creatinine Clr Calc Pharmacy 169.9; Estimated Glomerular Filt Rate > 60; Glucose Random 86 mg/dL (60-115); Magnesium 2.2 mg/dL (1.6-2.6); Sodium 141 mmol/L (135-145); Total Protein 6.7 g/dL (6.5-8.0)
[2020-09-28 19:34] LABS: HCG Quantitative < 2 mIU/mL
== END 2020-09-28 20:16 | disposition home or self-care (01) ==
PROVIDERS: Physician Assistant Medical; Emergency Provider Emergency Medicine
DX: R10.30 Lower abdominal pain, unspecified (principal)
CPT/HCPCS: 36415; 74176; 76775; 76830; 76856; 80053; 81003; 81025; 83735; 84702; 85025; 93975; 99284

== ENCOUNTER 2021-04-08 12:57 | Emergency (ER) | payer OTHER, SELFPAY ==
[2021-04-08 13:10] VITALS: BP 140/97; PULSE 110; RESP 18; TEMP 36.1; O2SAT 99; BMI 46.0
--- NOTE | 2021-04-08 13:18 | ED.ASTHMA ---
HPI - Asthma General Chief Complaint: Asthma Stated Complaint: asthma Time Seen by Provider: 04/08/21 13:11 Source: patient Mode of arrival: EMS History of Present Illness HPI Narrative: This is a 30-year-old female with history of asthma who had exacerbation of her asthma this morning. The patient had been doing some housecleaning and may have had some dust exposure. She tried using her nebulizer without relief. She denies any fever or cough or cold symptoms. She does use Xopenex inhaler as well as nebulizer treatment. She is not on any steroid inhaler. She denies any chest pain, leg swelling. Last menstrual period was last week Related Data Home Medications Medication Instructions Recorded Confirmed albuterol sulfate 90 mcg/actuation 2 puff PO Q4H PRN 01/18/20 06/13/20 aerosol inhaler hydrocortisone 2.5 % topical 1 appl TOPICAL BID 01/24/20 06/13/20 ointment Previous Rx's Medication Instructions Recorded cetirizine 10 mg capsule (Allergy 10 mg PO DAILY PRN 90 Days #90 cap 06/13/20 Relief (cetirizine)) oxycodone 5 mg tablet 5 mg PO Q8H PRN #10 tab 09/28/20 Xopenex HFA 45 mcg/actuation 2 puff INHALATION Q4-6H PRN 30 12/29/20 aerosol inhaler (levalbuterol Days #15 g NS tartrate) albuterol sulfate 1.25 mg/3 mL 2.5 mg (6 mL) INHALATION Q4-6H PRN 03/05/21 solution for nebulization #90 ml beclomethasone dipropionate 40 1 inh INHALATION BID #10.6 g 04/08/21 mcg/actuation HFA breath activated aerosol (Qvar RediHaler) prednisone 20 mg tablet 20 mg PO BID #10 tab 04/08/21 Allergies Allergy/AdvReac Type Severity Reaction Status Date / Time amoxicillin [AMOXICILLIN] Allergy Intermediate SWELLING Verified 04/08/21 13:14 cefaclor [From Ceclor] Allergy Intermediate SWELLING Verified 04/08/21 13:14 doxycycline Allergy Intermediate swelling Verified 04/08/21 13:14 peanut [PEANUTS] Allergy Intermediate HIVES Verified 04/08/21 13:14 shrimp [SHRIMP] Allergy Intermediate THROAT Verified 04/08/21 13:14 ITCHING Sulfa (Sulfonamide Allergy Intermediate SWELLING Verified 04/08/21 13:14 Antibiotics) Review of Systems Constitutional: Constitutional: Reports as per HPI and Denies fever(s) Eyes: Eyes: Reports no additional eye complaints ENT: Reports system reviewed and no additional complaints, except as documented Cardiovascular: Cardiovascular: Reports no additional cardiovascular complaints and Reports dyspnea Respiratory: Respiratory: Reports as per HPI, Reports dyspnea and Reports wheezing Gastrointestinal: Gastrointestinal: Reports no additional gastrointestinal complaints Musculoskeletal: Musculoskeletal: Reports no additional musculoskeletal complaints Neurologic: Denies Sensory deficit (Neuro) Allergic/Immunologic: Allergic/Immunologic: Reports wheezing [facility] Past Medical History Medical History Asthma Chronic calculous cholecystitis Eczema Family history of diabetes mellitus Heart murmur Obese Surgical History History of laparoscopic cholecystectomy (~01/27/20) Family History Family History Father Diabetes Mother Hypertension Maternal Grandmother [place] (myocardial infarction) Son In good health Son In good health Son In good health Daughter In good health Social History Social History Alcohol intake: never Advance Directives: No Advance Directives Information Provided: No Patient : No Physical Exam Vital Signs: Vital Signs: Last Vital Signs Temp 97.0 F 04/08/21 13:10 Pulse 114 H 04/08/21 13:26 Resp 18 04/08/21 13:26 BP 140/97 H 04/08/21 13:10 Pulse Ox 99 04/08/21 13:10 BMI result Body Mass Index 46.0 Const: General: cooperative, no acute distress and alert Orientation/consciousness: patient oriented x3 HENMT: Head: Yes normal to inspection Eyes: General: appearance normal, both eyes and all related structures Eyelids: Yes eyelids normal Conjunctivae: conjunctivae normal Pupils: Equal, round and reactive pupils present Neck: Neck: Yes normal visual inspection and Yes supple Chest: Chest palpation & inspection: normal inspection of the chest Resp: Effort & Inspection: normal respiratory effort Auscultation: clear to auscultation bilaterally Cardio: Rate: regular rate Rhythm: regular rhythm Heart sounds: S1 normal heart sound present, S2 normal heart sound present, no gallops, no murmurs and no rubs GI: Palpation (GI): Soft to palpation, nontender and Other GI palpation findings present (Non-distended) Auscultation: normal bowel sounds Skin: General skin exam: no rashes or lesions noted Neuro: General: patient oriented x3, no focal motor deficits and CN's II-XI intact bilaterally Cranial nerves: Yes Equal, round and reactive pupils present Cognition (Neuro): normal cognition Motor exam (neuro): 5/5 motor strength present throughout Sensory Exam: No Sensory deficit (Neuro) Extrem: General: Yes normal to inspection and Yes no pedal edema Psych: Appearance: grossly normal Affect: normal affect MDM - Asthma MDM Narrative Medical decision making narrative: Patient with a mild asthma exacerbation, oxygen saturation 99% on room air, minimal wheezes on exam. Patient was given a DuoNeb as well as started on prednisone, 60 mg p.o. given here. Patient is being prescribed prednisone and QVAR, can continue her albuterol and Xopenex Lab Data Labs: Lab Results 04/08/21 Range/Units 13:31 COVID-19 (SUSAN) Negative (Negative) COVID-19 Clin Com See Note Discharge Plan Discharge Clinical Impression: Asthma Patient Disposition: Home, Self-Care Instructions: Asthma (ED) Additional Instructions: Continue using her inhaler and nebulizer treatment. Start the QVAR steroid inhaler once or done with the prednisone. Prescriptions: New Qvar RediHaler 40 mcg/actuation HFA aerosol breath activated 1 inh inhalation BID Qty: 10.6 RF: 0 prednisone 20 mg tablet 20 mg PO BID Qty: 10 RF: 0 No Action levalbuterol tartrate [Xopenex HFA] 45 mcg/actuation HFA aerosol inhaler 2 puff inhalation Q4-6H PRN (Reason: shortness of breath) 30 Days Qty: 15 RF: 8 albuterol sulfate 1.25 mg/3 mL solution for nebulization 2.5 mg inhalation Q4-6H PRN (Reason: shortness of breath or wheezing) Qty: 90 RF: 6 hydrocortisone 2.5 % ointment 1 appl topical BID RF: 0 oxycodone 5 mg tablet 5 mg PO Q8H PRN (Reason: pain) Qty: 10 RF: 0 Allergy Relief (cetirizine) 10 mg capsule 10 mg PO DAILY PRN (Reason: allergy symptoms) 90 Days Qty: 90 RF: 3 albuterol sulfate 90 mcg/actuation HFA aerosol inhaler 2 puff PO Q4H PRN (Reason: Shortness Of Breath) RF: 0 Interventions: ED Discharge Assessment Last Done: 04/08/21 14:05 Discharge Date/Time: 04/08/21 14:05
[2021-04-08] MEDS: Albuterol/Iprat 2.5/0.5MG 3 ML AMPUL.NEB INHALE (13:24)
[2021-04-08 13:26] VITALS: PULSE 114; RESP 18; O2SAT 97
[2021-04-08] MEDS: predniSONE 20 MG TABLET 60 MG PO (13:29)
[2021-04-08 13:55] LABS: COVID-19 Test Negative (Negative)
== END 2021-04-08 14:05 | disposition home or self-care (01) ==
PROVIDERS: Emergency Provider Emergency Medicine
DX: J45.909 Unspecified asthma, uncomplicated (principal); Z20.822 Contact with and (suspected) exposure to COVID-19; Z79.899 Other long term (current) drug therapy
CPT/HCPCS: 87635; 94640; 99283

== ENCOUNTER 2021-05-17 08:53 | Emergency (ER) | payer OTHER, SELFPAY ==
--- NOTE | ~2021-05-17 | US_ITS ---
EXAMINATION: US PELVIS CLINICAL INFORMATION: Ultrasound pelvis, ultrasound appendix and pelvic Doppler COMPARISON: None TECHNIQUE: Ultrasound of the pelvis is performed using both transabdominal and transvaginal transducers along with Doppler. Transvaginal imaging is performed due to inadequate visualization transabdominally. Limited imaging through the appendix was performed. FINDINGS: Uterus: The uterus is anteverted, anteflexed and measures 9.2 cm in length, 4.3 mL in AP and 5.3 cm in transverse dimension. The double wall endometrial thickness is 0.6 cm. The uterus is smooth in contour and has normal myometrial echogenicity. No visible fibroid. Adnexa: Both ovaries are visualized. There is normal color flow to the adnexa. There is no ovarian torsion. There is no pelvic ascites or fluid collection. Right ovary measures 2.3 x 1.5 x 2.4 CM and volume 4.3 mL. Previously it measured 2.1 x 1.2 x 1.9 cm and volume 2.5 mL. It appears unremarkable. Left ovary measures 3.1 x 3.1 x 3.0 cm and volume 15.1 mL. Previously it measured 1.7 x 1.0 x 1.2 cm. It appears unremarkable. On Doppler exam due to body habitus bilateral ovarian flow was not visualized. Appendix: Appendix is not visualized. This does not exclude appendicitis. US/US pelvic and transvaginal IMPRESSION: Unremarkable uterus and ovaries. Due to patient's body habitus ovarian Doppler flow could not be evaluated. The appendix is not visualized.
--- NOTE | ~2021-05-17 | US_ITS ---
EXAMINATION: US PELVIS CLINICAL INFORMATION: Ultrasound pelvis, ultrasound appendix and pelvic Doppler COMPARISON: None TECHNIQUE: Ultrasound of the pelvis is performed using both transabdominal and transvaginal transducers along with Doppler. Transvaginal imaging is performed due to inadequate visualization transabdominally. Limited imaging through the appendix was performed. FINDINGS: Uterus: The uterus is anteverted, anteflexed and measures 9.2 cm in length, 4.3 mL in AP and 5.3 cm in transverse dimension. The double wall endometrial thickness is 0.6 cm. The uterus is smooth in contour and has normal myometrial echogenicity. No visible fibroid. Adnexa: Both ovaries are visualized. There is normal color flow to the adnexa. There is no ovarian torsion. There is no pelvic ascites or fluid collection. Right ovary measures 2.3 x 1.5 x 2.4 CM and volume 4.3 mL. Previously it measured 2.1 x 1.2 x 1.9 cm and volume 2.5 mL. It appears unremarkable. Left ovary measures 3.1 x 3.1 x 3.0 cm and volume 15.1 mL. Previously it measured 1.7 x 1.0 x 1.2 cm. It appears unremarkable. On Doppler exam due to body habitus bilateral ovarian flow was not visualized. Appendix: Appendix is not visualized. This does not exclude appendicitis. US/US pelvic ovarian doppler IMPRESSION: Unremarkable uterus and ovaries. Due to patient's body habitus ovarian Doppler flow could not be evaluated. The appendix is not visualized.
--- NOTE | ~2021-05-17 | US_ITS ---
EXAMINATION: US PELVIS CLINICAL INFORMATION: Ultrasound pelvis, ultrasound appendix and pelvic Doppler COMPARISON: None TECHNIQUE: Ultrasound of the pelvis is performed using both transabdominal and transvaginal transducers along with Doppler. Transvaginal imaging is performed due to inadequate visualization transabdominally. Limited imaging through the appendix was performed. FINDINGS: Uterus: The uterus is anteverted, anteflexed and measures 9.2 cm in length, 4.3 mL in AP and 5.3 cm in transverse dimension. The double wall endometrial thickness is 0.6 cm. The uterus is smooth in contour and has normal myometrial echogenicity. No visible fibroid. Adnexa: Both ovaries are visualized. There is normal color flow to the adnexa. There is no ovarian torsion. There is no pelvic ascites or fluid collection. Right ovary measures 2.3 x 1.5 x 2.4 CM and volume 4.3 mL. Previously it measured 2.1 x 1.2 x 1.9 cm and volume 2.5 mL. It appears unremarkable. Left ovary measures 3.1 x 3.1 x 3.0 cm and volume 15.1 mL. Previously it measured 1.7 x 1.0 x 1.2 cm. It appears unremarkable. On Doppler exam due to body habitus bilateral ovarian flow was not visualized. Appendix: Appendix is not visualized. This does not exclude appendicitis. US/US appendix IMPRESSION: Unremarkable uterus and ovaries. Due to patient's body habitus ovarian Doppler flow could not be evaluated. The appendix is not visualized.
[2021-05-17 09:02] VITALS: BP 154/80; PULSE 107; RESP 18; TEMP 36.9; O2SAT 98; BMI 47.0
--- NOTE | 2021-05-17 09:26 | ED.ABDPAIN ---
HPI - Abdominal Pain General Chief Complaint: Abdominal Pain Stated Complaint: lower abd pain r side Time Seen by Provider: 05/17/21 09:25 Source: patient Mode of arrival: ambulatory Limitations: no limitations History of Present Illness HPI narrative: Patient is a 30-year-old female with a past medical history of ovarian cyst. She presents emergency department for evaluation of right lower quadrant abdominal pain for 11 days. Pain has been constant with varying intensity. Denies any associated fevers, chills, nausea, vomiting, constipation, diarrhea, upper abdominal pain, left-sided abdominal pain. She denies dysuria, hematuria other she does report urinary frequency. Denies pelvic pain, abnormal vaginal bleeding or discharge. Denies possibility of . She has had a Nexplanon implant for 6 years, and states she is aware she is overdue to have it removed. Reports last menstrual period was 2-3 weeks ago. Reports that she took ibuprofen prior to arrival MD elicited complaint: abdominal pain Onset (ago): week(s) Pain Consistency: constant Location: RLQ Severity: moderate Pain scale (0-10): 5 Quality: cramping and sharp Exacerbating factors: nothing Relieving factors: nothing Treatments prior to arrival: NSAIDs Related Data Hx Last Menstrual Period: Uncertain of exact date, 2-3 weeks ago. Home Medications Medication Instructions Recorded Confirmed albuterol sulfate 90 mcg/actuation 2 puff PO Q4H PRN 01/18/20 04/23/21 aerosol inhaler hydrocortisone 2.5 % topical 1 appl TOPICAL BID 01/24/20 04/23/21 ointment Previous Rx's Medication Instructions Recorded cetirizine 10 mg capsule (Allergy 10 mg PO DAILY PRN 90 Days #90 cap 06/13/20 Relief (cetirizine)) Xopenex HFA 45 mcg/actuation 2 puff INHALATION Q4-6H PRN 30 12/29/20 aerosol inhaler (levalbuterol Days #15 g NS tartrate) albuterol sulfate 1.25 mg/3 mL 2.5 mg (6 mL) INHALATION Q4-6H PRN 03/05/21 solution for nebulization #90 ml beclomethasone dipropionate 40 1 inh INHALATION BID #10.6 g 04/08/21 mcg/actuation HFA breath activated aerosol (Qvar RediHaler) [id number] 1 cap PO Q4-6H PRN #10 cap 04/23/21 50 mg-300 mg-40 mg capsule (Fioricet) Allergies Allergy/AdvReac Type Severity Reaction Status Date / Time amoxicillin [AMOXICILLIN] Allergy Intermediate SWELLING Verified 05/17/21 09:02 cefaclor [From Ceclor] Allergy Intermediate SWELLING Verified 05/17/21 09:02 doxycycline Allergy Intermediate swelling Verified 05/17/21 09:02 peanut [PEANUTS] Allergy Intermediate HIVES Verified 05/17/21 09:02 shrimp [SHRIMP] Allergy Intermediate THROAT Verified 05/17/21 09:02 ITCHING Sulfa (Sulfonamide Allergy Intermediate SWELLING Verified 05/17/21 09:02 Antibiotics) Review of Systems Review of Systems Constitutional : No Weight loss, No Fever, No Chills ENT/Mouth :? No sore throat, No Rhinorrhea Eyes: No Swelling, No Redness Cardiovascular : No Chest Pain, No SOB, No Edema Respiratory : No Cough, No Sputum, No Wheezing Gastrointestinal : No Nausea, now Vomiting, no Diarrhea, positive abdominal pain, No Hematochezia, No Melena Genitourinary : No Dysuria, positive Urinary Frequency, No Hematuria, No Urgency? Musculoskeletal : No joint pain, No Myalgias, No Joint Swelling Skin : No Skin Lesions, No rash Neuro : No Weakness, No Numbness, No Dizziness, No Headache Psych : No Anxiety/Panic, No Depression Heme/Lymph: No Bruising, No Lymphadenopathy Endocrine : No Polyuria, No Polydipsia All other systems reviewed and are negative. [facility], [facility] Past Medical History Attestation statement: The following information was validated with the patient. Source: old records reviewed Medical History Asthma Chronic calculous cholecystitis Eczema Family history of diabetes mellitus Heart murmur Obese Surgical History History of laparoscopic cholecystectomy (~01/27/20) Hx Last Menstrual Period: Uncertain of exact date, 2-3 weeks ago. Family History Family History Father Diabetes Mother Hypertension Maternal Grandmother [place] (myocardial infarction) Son In good health Son In good health Son In good health Daughter In good health Brother Mental health disorder Social History Social History Housing: Apartment Alcohol intake: never Patient Tobacco Use Status: Never used Tobacco e-Cigarette/Vaping Use: Never Used Second Hand Smoke Exposure: No Use of substances other than those prescribed or required for medical reasons: No Advance Directives: No Advance Directives Information Provided: No Patient : No service: No Current occupational status: unemployed Cognitive needs: No Hearing needs: No Vision needs: No Physical Exam ED Vital Signs: Vital Signs - 24 hr 05/17/21 09:02 05/17/21 11:25 Temperature 98.4 F Pulse Rate 107 H 90 Respiratory Rate 18 16 Blood Pressure 154/80 H 153/72 H Pulse Oximetry 98 98 BMI result Body Mass Index 47.0 Vital signs have been reviewed and appeared to be correct. Blood pressure elevated 154/80.? Heart rate elevated 107? Respiration rate normal. Temperature normal.? Oxygen saturation normal. Appearance: Alert.?Oriented to person, place and time. No acute distress.?Normal affect. Eyes: Pupils equal, round and reactive to light.? ENT: Pharynx normal.?? Neck: Normal inspection.? Neck supple.?? CVS: Heart sounds normal. Normal heart rate and rhythm.? Pulses normal.?? Respiratory: No respiratory distress.? Lung sounds clear to auscultation bilaterally?? Abdomen: Soft no point tenderness, reporting cramping with palpation of the right lower quadrant. Normoactive bowel sounds. No pulsatile mass.?? Genitourinary:? Supervised by Daylin PHELPS. Normal external appearance of urethra.? No lesions/lacerations or discharge or tenderness noted. No Bartholin cyst noted.? Speculum exam: normal appearance/palpation of vagina normal. No abnormal vaginal discharge, swelling, erythema, laceratons, or active bleeding noted.?No foreign bodies noted.? No vaginal tenderness noted.? Normal appearance of cervix. Normal palpation of cervix.? Cervical os is closed.? No abnormal cervical discharge noted.? No cervical lesion/mass.?? No cervical motion tenderness noted.? Negative chandelier sign.? Normal bimanual exam. Normal rectovaginal exam. Skin: Skin warm and dry.? Normal skin color.? Normal skin turgor.?? Extremities: No lower extremity edema.? Neuro: Moves all extremities spontaneously. Sensation intact bilaterally.No focal neuro deficits. Ambulates with normal steady gait. Course Course Course Narrative: Patient is a 30-year-old female being evaluated for right lower quadrant abdominal pain. She is well appearing, afebrile, nontoxic, hemodynamically stable. No rebound tenderness at McBurney's point, psoas negative, obturators sign negative, no peritoneal signs to suggest acute abdomen. No guarding. No palpable deformity/ mass/ lump to suggest hernia. Will obtain urinalysis and urine test to evaluate for UTI, possible , ultrasound to exclude ectopic, ovarian torsion, ovarian cyst in addition to CBC for leukocytosis, CMP for abnormal electrolytes and normal renal function, abnormal hepatic function. Declines concern for sexually transmitted infection, however will test for gonorrhea and chlamydia as she is currently sexually active and is agreeable with this plan. Reevaluation(s) Reevaluation #1: Urine negative, U/A unremarkable. CBC and CMP unremarkable. Pelvic exam is unremarkable. Ultrasound is overall unremarkable, there is no ovarian torsion, pelvic ascites or fluid collection. Appendix is not able to be visualized on the exam. However, very low suspicion for appendicitis based on history and physical exam she is afebrile, has no nausea or vomiting, no rebound tenderness or peritoneal signs. Pain improved some with Toradol patient is able to tolerate oral fluids and food without problem. I have discussed the results and findings with the patient. We will plan for discharge home with follow-up with her PCP in 1-2 days. Discussed reasons to return to the emergency department including worsening pain, fevers, chills, nausea, vomiting, or any new symptoms or concerns. Time: 12:06 [facility] - Abdominal Pain Medical Records Attestation: I reviewed the patient's medical records. Lab Data Attestation: I reviewed the patient's lab results. Result diagrams: 05/17/21 09:49 05/17/21 09:49 Labs: Lab Results 05/17/21 05/17/21 05/17/21 Range/Units 09:41 09:41 09:49 WBC 9.2 (4.8-10.8) X10*3/uL RBC 4.66 (4.20-5.50) X10*6/uL Hgb 12.5 (12.0-16.0) g/dl Hct 38.6 (37.0-47.0) % MCV 82.8 (80.0-98.0) fL MCH 26.8 L (27.0-33.0) pg MCHC 32.4 (31.0-35.0) g/dl RDW 13.4 (11.0-16.0) % Plt Count 321 (160-400) X10*3/uL MPV 9.9 (9.4-12.3) fL Immature Gran % (Auto) 0.3 (0.0-0.4) % Neut % (Auto) 69.5 (45-73) % Lymph % (Auto) 20.0 (20-40) % Hopkins % (Auto) 6.0 (2-11) % Eos % (Auto) 3.9 (0-4) % Baso % (Auto) 0.3 (0-2) % Lymph # (Auto) 1.9 (1.2-4.9) X10*3/uL Hopkins # (Auto) 0.6 (0.1-1.2) X10*3/uL Eos # (Auto) 0.4 (0.0-0.4) X10*3/uL Baso # (Auto) 0.0 (0.0-0.2) X10*3/uL Abs Immat Gran (auto) 0.03 (0.00-0.03) X10*3/uL Absolute Neuts (auto) 6.4 (2.0-8.3) x10*3/uL Absolute Nucleated RBC 0.000 (0.0-0.012) X10*3/uL Nucleated RBC % (auto) 0.0 (0.0-0.2) /100WBC Sodium (135-145) mmol/L Potassium (3.3-5.1) mmol/L Chloride (96-108) mmol/L Carbon Dioxide (22-29) mmol/L Anion Gap (12-20) BUN (9-16) mg/dL Creatinine (0.5-1.4) mg/dL Estim Creat Clear Calc Estimated GFR Random Glucose (60-115) mg/dL Calcium (8.4-10.2) mg/dL Total Bilirubin (0.0-1.0) mg/dL AST (5-31) U/L ALT (0-31) U/L Alkaline Phosphatase (39-117) U/L Total Protein (6.5-8.0) g/dL Albumin (3.5-5.0) g/dL Urine Color YELLOW Urine Appearance HAZY Urine pH 6.0 (5.0-8.0) Ur Specific Jasper >= 1.030 H (1.005-1.025) Urine Protein NEG (NEG-TRACE) MG/DL Urine Glucose (UA) NEG (NEG) MG/DL Urine Ketones NEG (NEG) MG/DL Urine Blood NEG (NEG) Urine Nitrite NEG (NEG) Ur Leukocyte Esterase NEG (NEG) Urine Test NEGATIVE (NEGATIVE) 05/17/21 Range/Units 09:49 WBC (4.8-10.8) X10*3/uL RBC (4.20-5.50) X10*6/uL Hgb (12.0-16.0) g/dl Hct (37.0-47.0) % MCV (80.0-98.0) fL MCH (27.0-33.0) pg MCHC (31.0-35.0) g/dl RDW (11.0-16.0) % Plt Count (160-400) X10*3/uL MPV (9.4-12.3) fL Immature Gran % (Auto) (0.0-0.4) % Neut % (Auto) (45-73) % Lymph % (Auto) (20-40) % Hopkins % (Auto) (2-11) % Eos % (Auto) (0-4) % Baso % (Auto) (0-2) % Lymph # (Auto) (1.2-4.9) X10*3/uL Hopkins # (Auto) (0.1-1.2) X10*3/uL Eos # (Auto) (0.0-0.4) X10*3/uL Baso # (Auto) (0.0-0.2) X10*3/uL Abs Immat Gran (auto) (0.00-0.03) X10*3/uL Absolute Neuts (auto) (2.0-8.3) x10*3/uL Absolute Nucleated RBC (0.0-0.012) X10*3/uL Nucleated RBC % (auto) (0.0-0.2) /100WBC Sodium 139 (135-145) mmol/L Potassium 4.2 (3.3-5.1) mmol/L Chloride 105 (96-108) mmol/L Carbon Dioxide 26 (22-29) mmol/L Anion Gap 12 (12-20) BUN 11 (9-16) mg/dL Creatinine 0.68 (0.5-1.4) mg/dL Estim Creat Clear Calc 153.3 Estimated GFR > 60 Random Glucose 96 (60-115) mg/dL Calcium 9.7 D (8.4-10.2) mg/dL Total Bilirubin 0.5 (0.0-1.0) mg/dL AST 19 (5-31) U/L ALT 24 (0-31) U/L Alkaline Phosphatase 68 (39-117) U/L Total Protein 6.8 (6.5-8.0) g/dL Albumin 4.0 (3.5-5.0) g/dL Urine Color Urine Appearance Urine pH (5.0-8.0) Ur Specific Jasper (1.005-1.025) Urine Protein (NEG-TRACE) MG/DL Urine Glucose (UA) (NEG) MG/DL Urine Ketones (NEG) MG/DL Urine Blood (NEG) Urine Nitrite (NEG) Ur Leukocyte Esterase (NEG) Urine Test (NEGATIVE) Imaging Data ABD/pelvic US: Radiologist's impression: IMPRESSION: Unremarkable uterus and ovaries. ? Due to patient's body habitus ovarian Doppler flow could not be evaluated. ? The appendix is not visualized. Discharge Plan Discharge Clinical Impression: Abdominal pain Patient Disposition: Home, Self-Care Instructions: Abdominal Pain (ED) Additional Instructions: The results of your blood work, urine testing, and your ultrasound were normal. Your appendix was not able to be visualized on ultrasound. However, as we discussed do not suspect this to be appendicitis at this time. Should she developed severe/worsening pain, fevers, chills, nausea, vomiting or any new symptoms he should come back to the emergency department for evaluation. Please contact her primary care provider to schedule a follow-up appointment in 1-2 days. Prescriptions: No Action levalbuterol tartrate [Xopenex HFA] 45 mcg/actuation HFA aerosol inhaler 2 puff inhalation Q4-6H PRN (Reason: shortness of breath) 30 Days Qty: 15 8RF albuterol sulfate 1.25 mg/3 mL solution for nebulization 2.5 mg inhalation Q4-6H PRN (Reason: shortness of breath or wheezing) Qty: 90 6RF hydrocortisone 2.5 % ointment 1 appl topical BID 0RF Qvar RediHaler 40 mcg/actuation HFA aerosol breath activated 1 inh inhalation BID Qty: 10.6 0RF Allergy Relief (cetirizine) 10 mg capsule 10 mg PO DAILY PRN (Reason: allergy symptoms) 90 Days Qty: 90 3RF gcuvzrrxac-pklqammepxlad-[id number] [Fioricet] 50-300-40 mg capsule 1 cap PO Q4-6H PRN (Reason: headache) Qty: 10 0RF albuterol sulfate 90 mcg/actuation HFA aerosol inhaler 2 puff PO Q4H PRN (Reason: Shortness Of Breath) 0RF
[2021-05-17 09:54] LABS: MANUAL DIFF FLAG NO
[2021-05-17 09:55] LABS: Appearance Urine HAZY; Color Urine YELLOW; Glucose Urine UA NEG (NEG); Leukocyte Esterase Urine NEG (NEG); Nitrite Urine NEG (NEG); Specific Gravity - Urine >= 1.030 (1.005-1.025); UPreg QC Valid YES; Urine Blood NEG (NEG); Urine Ketones NEG (NEG); Urine Pregnancy NEGATIVE (NEGATIVE); Urine Protein NEG (NEG-TRACE)
[2021-05-17 09:56] LABS: Basophils Percent Auto 0.3 % (0-2); Eosinophils Absolute Auto 0.4 X10*3/uL (0.0-0.4); Eosinophils Percent Auto 3.9 % (0-4); Hematocrit 38.6 % (37.0-47.0); Hemoglobin 12.5 g/dl (12.0-16.0); Imm Gran Abs Auto 0.03 X10*3/uL (0.00-0.03); Imm Gran Pct Auto 0.3 % (0.0-0.4); Lymphocytes Absolute Auto 1.9 X10*3/uL (1.2-4.9); Mean Corpuscular HGB Conc 32.4 g/dl (31.0-35.0); Mean Corpuscular Hemoglobin 26.8 pg (27.0-33.0); Mean Corpuscular Volume 82.8 fL (80.0-98.0); Mean Platelet Volume 9.9 fL (9.4-12.3); Monocytes Absolute Auto 0.6 X10*3/uL (0.1-1.2); Neutrophils Absolute Auto 6.4 x10*3/uL (2.0-8.3); Neutrophils Percent Auto 69.5 % (45-73); Platelet Count 321 X10*3/uL (160-400); Red Blood Count 4.66 X10*6/uL (4.20-5.50); Red Cell Distribution Width 13.4 % (11.0-16.0); White Blood Count 9.2 X10*3/uL (4.8-10.8)
[2021-05-17 10:29] LABS: Alanine Aminotransferase 24 U/L (0-31); Alkaline Phosphatase 68 U/L (39-117); Anion Gap 12 (12-20); Aspartate Amino Transferase 19 U/L (5-31); Bilirubin Total 0.5 mg/dL (0.0-1.0); Blood Urea Nitrogen 11 mg/dL (9-16); Calcium 9.7 mg/dL (8.4-10.2); Carbon Dioxide 26 mmol/L (22-29); Chloride 105 mmol/L (96-108); Creatinine Clr Calc Pharmacy 153.3; Estimated Glomerular Filt Rate > 60; Glucose Random 96 mg/dL (60-115); Potassium 4.2 mmol/L (3.3-5.1); Sodium 139 mmol/L (135-145); Total Protein 6.8 g/dL (6.5-8.0)
[2021-05-17 11:25] VITALS: BP 153/72; PULSE 90; RESP 16; O2SAT 98
[2021-05-17] MEDS: Ketorolac Tromethamine 30 MG/ML VIAL IM (11:58)
[2021-05-17 14:17] LABS: CT PCR NOT DETECTED (Not Detect.); NG PCR NOT DETECTED (Not Detect.)
== END 2021-05-17 12:55 | disposition home or self-care (01) ==
PROVIDERS: Nurse Practitioner Family; Emergency Provider Emergency Medicine; PCP Internal Medicine
DX: R10.31 Right lower quadrant pain (principal)
CPT/HCPCS: 36415; 76705; 76830; 76856; 80053; 81003; 81025; 85025; 87491; 87591; 93975; 96372; 99284; J1885

== ENCOUNTER → 2021-06-04 11:02 | Outpatient (BNVA) | payer OTHER, SELFPAY | PROVIDERS: PCP Internal Medicine; Visit Provider Advanced Practice Midwife | DX: N94.6 Dysmenorrhea, unspecified (principal); Z30.46 Encounter for surveillance of implantable subdermal contraceptive | CPT/HCPCS: Q3014 ==

== ENCOUNTER → 2021-07-10 10:27 | Outpatient (BNVA) | payer OTHER, SELFPAY | PROVIDERS: PCP Internal Medicine; Visit Provider Advanced Practice Midwife | DX: Z30.46 Encounter for surveillance of implantable subdermal contraceptive (principal) | CPT/HCPCS: 11983; 81025; J7307 ==

== ENCOUNTER → 2021-08-15 10:26 | Outpatient (BNVA) | payer OTHER, SELFPAY | PROVIDERS: PCP Internal Medicine; Visit Provider Advanced Practice Midwife | DX: Z30.46 Encounter for surveillance of implantable subdermal contraceptive (principal) | CPT/HCPCS: 99212 ==

== ENCOUNTER → 2021-09-12 12:08 | Outpatient (BNVA) | payer OTHER, SELFPAY | PROVIDERS: PCP Internal Medicine; Visit Provider Obstetrics & Gynecology | DX: Z30.09 Encounter for other general counseling and advice on contraception (principal) | CPT/HCPCS: 99212 ==

== ENCOUNTER → 2021-09-25 09:13 | Outpatient (BNVA) | payer OTHER, SELFPAY | PROVIDERS: PCP Internal Medicine; Visit Provider Nurse Practitioner Family | DX: G43.909 Migraine, unspecified, not intractable, without status migrainosus (principal); G47.9 Sleep disorder, unspecified; R06.83 Snoring; R53.83 Other fatigue; Z82.49 Family history of ischemic heart disease and other diseases of the circulatory system | CPT/HCPCS: 99202 ==

== ENCOUNTER → 2021-10-11 08:49 | Outpatient (REF) | payer OTHER, SELFPAY | LOC: HO.SL 08:49 | PROVIDERS: PCP Internal Medicine; Visit Provider Nurse Practitioner Family | DX: G47.19 Other hypersomnia (principal); G47.9 Sleep disorder, unspecified; R06.83 Snoring; R51.9 Headache, unspecified; R53.83 Other fatigue; G47.10 Hypersomnia, unspecified | CPT/HCPCS: 95806 ==

== ENCOUNTER 2021-10-17 10:08 | Outpatient (REF) | payer OTHER, SELFPAY ==
--- NOTE | ~2021-10-17 | CT_ITS ---
EXAMINATION: CT ANGIOGRAM HEAD CLINICAL INFORMATION: Reason for Exam Z82.49 - Family history of ischemic heart disease and other diseases of ... COMPARISON: None. TECHNIQUE: Test bolus sequences followed by intravenous administration 70 mL of Omnipaque 350. Helical imaging was performed in the axial plane from the skull base to the skull vertex. Delayed postcontrast imaging of the head was also performed. The data was processed at the medical technologist microbiology's workstation for generation of MIP sequences. Angled MIPs and volume rendered reformatted images were also generated at an offline 3D workstation. Stenoses are assessed in accordance with NASCET criteria unless otherwise indicated. This CT examination was performed using dose optimization techniques as appropriate, variously including the following: *Automated exposure control *Adjustment of mA and/or kV according to patient size (this includes techniques or standardized protocols for targeted exams where dose is matched to indication/reason for exam; i.e. extremities or head) *Use of iterative reconstruction technique DLP: 2417 mGy-cm FINDINGS: CT head: There is no evidence of acute intracranial hemorrhage. Angelo to white matter differentiation is well preserved, no acute intracranial infarction. No abnormal mass effect or midline shift is seen. No extra-axial fluid collections are identified. There is no abnormal enhancement. The ventricles are normal in size. The osseous structures and soft tissues are normal. The mastoid air cells are clear. Trace left maxillary and ethmoid sinus mucosal thickening. CTA head: CTA of the head is somewhat technically limited due to venous contamination related to contrast bolus timing The bilateral internal carotid arteries show normal caliber throughout their intracranial segments. No aneurysm is identified in their respective termini. The bilateral vertebral arteries converge normally into a patent basilar artery. Normal bifurcation of the basilar artery with no evidence of aneurysm. The anterior communicating artery is patent. The bilateral MCA complexes show symmetric arborization of their distal branches. The bilateral ASHISH complexes are patent and symmetric. The bilateral CONTROL ROOM [employer]PER complexes are patent and symmetric. CT/CT angio head IMPRESSION: Normal CTA of the brain. No arterial steno-occlusive disease or aneurysm.
[2021-10-17] MEDS: iohexoL 350 MG/ML 100 ML INFUS..BTL IV (11:00)
== END 2021-10-17 10:09 | disposition home or self-care (01) ==
LOC: HO.CT 10:08
PROVIDERS: PCP Internal Medicine; Visit Provider Nurse Practitioner Family
DX: I67.1 Cerebral aneurysm, nonruptured (principal); Z82.49 Family history of ischemic heart disease and other diseases of the circulatory system
CPT/HCPCS: 70496; Q9967

== ENCOUNTER 2021-10-30 09:06 | Outpatient (REF) | payer OTHER, SELFPAY ==
[2021-10-30 18:31] LABS: CT PCR NOT DETECTED (Not Detect.); NG PCR NOT DETECTED (Not Detect.)
[2021-10-31 13:04] LABS: BV Int Neg Control Negative (Negative); BV Int Pos Control Positive (Positive)
[2021-11-03 14:37] LABS: HPV mRNA E6/E7 rflx Not Detected (Not Detected)
== END 2021-10-30 09:07 | disposition home or self-care (01) ==
LOC: HO.LAB 09:06
PROVIDERS: Visit Provider Advanced Practice Midwife
DX: Z01.419 Encounter for gynecological examination (general) (routine) without abnormal findings (principal); Z11.51 Encounter for screening for human papillomavirus (HPV)
CPT/HCPCS: 87480; 87491; 87510; 87591; 87624; 87660; 88142

== ENCOUNTER 2022-01-31 23:21 | Emergency (ER) | payer OTHER, SELFPAY ==
--- NOTE | ~2022-01-31 | XR_ITS ---
EXAMINATION: XR CHEST CLINICAL INFORMATION: fb in throat, sob, asthma wheezing COMPARISON: 04/13/2020 TECHNIQUE: AP view of the chest FINDINGS: No radiodense foreign bodies are identified. Lungs are clear. No consolidation, pneumothorax, or pleural effusion. Cardiac and mediastinal contours are normal. Pulmonary vasculature is unremarkable. Osseous structures are unremarkable. XR/XR chest 1V IMPRESSION: No acute cardiopulmonary findings
[2022-01-31 23:28] VITALS: BP 156/97; BP 182/82; PULSE 121; PULSE 126; RESP 20; TEMP 36.9; O2SAT 97; BMI 44.8
--- NOTE | 2022-01-31 23:54 | ECG_ITS ---
Test Reason : tachy Blood Pressure : / mmHG Vent. Rate : 106 BPM Atrial Rate : 106 BPM P-R Int : 150 ms QRS Dur : 094 ms QT Int : 328 ms P-R-T Axes : 027 055 050 degrees QTc Int : 435 ms Sinus tachycardia RSR' or QR pattern in V1 suggests right ventricular conduction delay Otherwise normal ECG When compared with ECG of 25-MAR-2019 05:40, No significant change was found Referred By: Sj Martinez Electronically Signed By:KWADWO DOTY MD
--- NOTE | 2022-01-31 23:56 | ED_ITS ---
HPI - General Adult General Chief complaint: General Medical Stated complaint: diff breathing Time Seen by Provider: 01/31/22 23:54 Source: patient and EMS Mode of arrival: EMS Limitations: no limitations History of Present Illness HPI narrative: 31-year-old female presenting to the emergency/body sensation in throat times a few hours and also reporting shortness of breath & wheezing. Patient tells me she thinks she is having an acute asthma exacerbation, she tells me feels like her typical, patient tried inhalers with little to no relief. She tells me she feels wheezing. Also reports he has a foreign body sensation in her throat after taking her magnesium pill, she tells me she feels like it is stuck in her throat, has been coughing to get it out. This is never happened to her before. Patient reports since feeling this way she has not been able to take anything down by mouth, she feels like she can not swallow. Patient denies chest pain, fevers, chills, headache, vision changes, weakness, nausea, vomiting, abdominal pain. Nexplanon in place. No lower extremity swelling. Non smoker. No long tr ave. Related Data Home Medications Medication Instructions Recorded Confirmed albuterol sulfate 90 mcg/actuation 2 puff PO Q4H PRN Shortness Of 01/18/20 09/25/21 aerosol inhaler Breath etonogestrel 68 mg subdermal subdermal 07/10/21 09/25/21 implant (Nexplanon) Previous Rx's Medication Instructions Recorded albuterol sulfate 1.25 mg/3 mL 2.5 mg (6 mL) inhalation Q4-6H PRN 03/05/21 solution for nebulization shortness of breath or wheezing #90 mL beclomethasone dipropionate 40 1 inh inhalation BID #10.6 grams 04/08/21 mcg/actuation HFA breath activated aerosol (Qvar RediHaler) magnesium oxide 400 mg (241.3 mg 400 mg PO BEDTIME 30 days #30 tabs 09/25/21 magnesium) tablet riboflavin (vitamin B2) 400 mg 400 mg PO DAILY 30 days #30 tabs 09/25/21 tablet sumatriptan succinate 100 mg tablet 50 - 100 mg PO Q2H PRN migraine 09/25/21 headache 30 days #12 tabs topiramate 25 mg tablet See Rx Instructions PO DAILY 30 09/25/21 days #60 tabs Xopenex HFA 45 mcg/actuation 2 puff inhalation Q4-6H PRN 12/16/21 aerosol inhaler (levalbuterol shortness of breath 30 days #15 tartrate) grams prednisone 10 mg tablet 10 mg PO DAILY PRN bronchospasm 6 12/25/21 days #12 tabs albuterol sulfate 2.5 mg/3 mL 2.5 mg (3 mL) inhalation Q6H #75 mL 02/01/22 (0.083 %) solution for nebulization albuterol sulfate 90 mcg/actuation 2 inh inhalation Q4-6H PRN 02/01/22 breath activated powder inhaler shortness of breath or wheezing #1 ea prednisone 20 mg tablet 40 mg PO DAILY 5 days #10 tabs 02/01/22 Allergies Allergy/AdvReac Type Severity Reaction Status Date / Time amoxicillin [AMOXICILLIN] Allergy Intermediate SWELLING Verified 01/31/22 23:28 cefaclor [From Ceclor] Allergy Intermediate SWELLING Verified 01/31/22 23:28 doxycycline Allergy Intermediate swelling Verified 01/31/22 23:28 peanut [PEANUTS] Allergy Intermediate HIVES Verified 01/31/22 23:28 shrimp [SHRIMP] Allergy Intermediate THROAT Verified 01/31/22 23:28 ITCHING Sulfa (Sulfonamide Allergy Intermediate SWELLING Verified 01/31/22 23:28 Antibiotics) Review of Systems Review of Systems: Constitutional : No Weight loss, No Fever, No Chills, No Fatigue, No Malaise ENT/Mouth : No sore throat, No Rhinorrhea, + fb sensation in throat Eyes: No Eye Pain, No Swelling, No Redness Cardiovascular : No Chest Pain, + SOB, No Dyspnea on Exertion, No Orthopnea, No Edema, No Palpitations Respiratory : No Cough, No Sputum, + Wheezing Gastrointestinal : No Nausea, No Vomiting, No Diarrhea, No Constipation, No abdominal Pain, No Hematochezia, No Melena Genitourinary : No Dysuria, No Urinary Frequency, No Hematuria, Musculoskeletal : No joint pain, No Myalgias, No Joint Swelling Skin : No Skin Lesions, No rash Neuro : No Weakness, No Numbness, No Dizziness, No Headache Psych : No Anxiety/Panic, No Depression All other systems reviewed and are negative Yes all other systems are reviewed and are negative PMFSH Past Medical History Attestation statement: The following information was validated with the patient. Source: old records reviewed and nursing notes reviewed Medical History Asthma Chronic calculous cholecystitis Eczema Family history of diabetes mellitus Heart murmur Obese Surgical History History of laparoscopic cholecystectomy (~01/27/20) Family History Family History Father Diabetes Mother Hypertension Maternal Grandmother [place] (myocardial infarction) Son In good health Son In good health Son In good health Daughter In good health Brother Mental health disorder Social History Social History Housing: Apartment Alcohol intake: current Alcohol intake frequency: holidays/special occasions only Alcohol type: wine Patient Tobacco Use Status: Never used Tobacco Smoked in Last 30 Days: No e-Cigarette/Vaping Use: Never Used Second Hand Smoke Exposure: No Use of substances other than those prescribed or required for medical reasons: No Advance Directives: No Advance Directives Information Provided: Yes service: No Current occupational status: unemployed Sexual orientation: Straight/Heterosexual Gender identity: Female Cognitive needs: No Hearing needs: No Vision needs: No Physical Exam ED Vital Signs: Vital Signs - 24 hr 01/31/22 23:28 02/01/22 00:12 02/01/22 00:51 Temperature 98.4 F 99 F Pulse Rate 121 H 104 H 109 H Respiratory Rate 20 18 15 Blood Pressure 156/97 H 160/75 H Pulse Oximetry 97 98 Oxygen Delivery Method Room Air Room Air BMI result Body Mass Index 44.8 vss Appearance: Alert.? Oriented X3.? No acute distress.? Patient is speaking in full sentences, is controlling secretions well, appears to be in no acute distress. Head: Normocephalic, atraumatic, no step-offs or deformities Eyes: Pupils equal, round and reactive to light.? ENT: Pharynx normal. No visualized FB . Patent airway Mallampati score of 1 Neck: Normal inspection.? Neck supple.? CVS: Normal heart rate and rhythm.? Pulses normal.? Respiratory: No respiratory distress.? Patient noted to have inspiratory and expiratory wheezing throughout with diminished breath sounds..? No stridor. Abdomen: Soft and nontender.? Skin: Skin warm and dry.? Normal skin color.? Normal skin turgor.? Extremities: No lower extremity edema.? No calf ttp. 5/5 strength to bilateral upper and lower extremities Neuro: Oriented X 3.? No motor deficit.? No sensory deficit. CN 2-12 intact Course Reevaluation(s) Reevaluation #1: Patient now reporting that she coughed up pieces of her pill and she is feeling better. Able to tolerate p.o.. Time: 00:10 Reevaluation #2: CBC with slight leukocytosis likely reactive from asthma. Patient passed PO tri al w/o difficulties no longer having FB sensaiton. Time: 01:00 Reevaluation #3: Chemistry without acute findings. Patient feeling so much better at this time. Remains tachycardic likely secondary to multiple DuoNebs, and treatments at home. Patient tells me she is feeling better, no longer feeling foreign body sensation in throat. Improvement in wheezing. On re-evaluation there is no longer audible wheezes on exam, breath sounds clear, no evidence of intercostal retractions or labored breathing. Patient appears better saturating well on room air. At this time I will discharge her on prednisone, albuterol and give her nebulizing treatments for home. Advised to return with new or worsening symptoms. Comfortable discharge Time: 01:47 Medications Administered Discontinued Medications Generic Name Dose Route Start Last Admin Trade Name Freq PRN Reason Stop Dose Admin Albuterol/Ipratropium 3 ml 01/31/22 23:56 02/01/22 00:09 Albuterol/Iprat 2.5/0.5mg 3 Ml Ampul.Neb INHALE 01/31/22 23:57 3 ml ONCE ONE Administration Dexamethasone Sodium Phosphate 10 mg 02/01/22 00:39 02/01/22 01:16 Dexamethasone Sod Phosphate 10 Mg/Ml Vial IVPUSH 02/01/22 00:40 10 mg ONCE ONE Administration Medical Decision Making [facility] Narrative Medical decision making narrative: [id number] 31 year old female presents w/ FB sensation in throat thinks her magnesium pill is stuck, also compalins of SOB thinks it her asthma. Tried inhalers w/o relief. Physical examination with inspiratory and expiratory wheezing, no stridor. No evidence of foreign body mouth. Regular rate fast rhythm likely sinus tachycardia. Abdomen soft nontender nondistended. Negative Mann bilaterally. Neuro nonfocal. Concerns for foreign body in throat vs strictures. Also concerns for asthma or viral syndrome. Unlikely that this is pulmonary embolism patient without significant risk factors. Will also obtain an EKG and troponin. Plan at this time is basic labs, D-dimer, troponin, EKG, flu/COVID/RSV, urine. Will give her DuoNeb at this time. Medical Records Medical records reviewed: Yes I reviewed the patient's medical records. Lab Data Lab results reviewed: Yes I reviewed the patient's lab results. Result diagrams: 02/01/22 00:44 02/01/22 00:44 Labs: Lab Results 02/01/22 02/01/22 02/01/22 Range/Units 00:39 00:40 00:44 WBC 11.7 H (4.8-10.8) X10*3/uL RBC 5.08 (4.20-5.50) X10*6/uL Hgb 13.0 (12.0-16.0) g/dl Hct 40.6 (37.0-47.0) % MCV 79.9 L (80.0-98.0) fL MCH 25.6 L (27.0-33.0) pg MCHC 32.0 (31.0-35.0) g/dl RDW 13.5 (11.0-16.0) % Plt Count 361 (160-400) X10*3/uL MPV 10.1 (9.4-12.3) fL Immature Gran % (Auto) 0.3 (0.0-0.4) % Neut % (Auto) 61.1 (45-73) % Lymph % (Auto) 28.2 (20-40) % Bea[place]gard % (Auto) 6.5 (2-11) % Eos % (Auto) 3.5 (0-4) % Baso % (Auto) 0.4 (0-2) % Lymph # (Auto) 3.3 (1.2-4.9) X10*3/uL [place] # (Auto) 0.8 (0.1-1.2) X10*3/uL Eos # (Auto) 0.4 (0.0-0.4) X10*3/uL Baso # (Auto) 0.1 (0.0-0.2) X10*3/uL Abs Immat Gran (auto) 0.04 H (0.00-0.03) X10*3/uL Absolute Neuts (auto) 7.2 (2.0-8.3) x10*3/uL Absolute Nucleated RBC 0.000 (0.0-0.012) X10*3/uL Nucleated RBC % (auto) 0.0 (0.0-0.2) /100WBC Sodium (135-145) mmol/L Potassium (3.3-5.1) mmol/L Chloride (96-108) mmol/L Carbon Dioxide (22-29) mmol/L Anion Gap (12-20) BUN (9-16) mg/dL Creatinine (0.5-1.4) mg/dL Estim Creat Clear Calc Estimated GFR Random Glucose (60-115) mg/dL Calcium (8.4-10.2) mg/dL Total Bilirubin (0.0-1.0) mg/dL AST (5-31) U/L ALT (0-31) U/L Alkaline Phosphatase (39-117) U/L Troponin I High Sens (<3.5-17.0) ng/L Total Protein (6.5-8.0) g/dL Albumin (3.5-5.0) g/dL Urine Color Yellow Urine Appearance Clear Urine pH 5.0 (5.0-9.0) Ur Specific [place] 1.025 (1.005-1.025) Urine Protein Negative (Neg-Trace) mg/dL Urine Glucose (UA) Negative (Negative) mg/dL Urine Ketones Negative (Negative) mg/dL Urine Blood Negative (Negative) Urine Nitrite Negative (Negative) Ur Leukocyte Esterase Negative (Negative) Influenza Type A (PCR) NEGATIVE (Negative) Influenza Type B (PCR) NEGATIVE (Negative) RSV RNA Qual (PCR) NEGATIVE (Negative) SARS-CoV-2 RNA (RT-PCR) NEGATIVE (Negative) 02/01/22 02/01/22 Range/Units 00:44 00:44 WBC (4.8-10.8) X10*3/uL RBC (4.20-5.50) X10*6/uL Hgb (12.0-16.0) g/dl Hct (37.0-47.0) % MCV (80.0-98.0) fL MCH (27.0-33.0) pg MCHC (31.0-35.0) g/dl RDW (11.0-16.0) % Plt Count (160-400) X10*3/uL MPV (9.4-12.3) fL Immature Gran % (Auto) (0.0-0.4) % Neut % (Auto) (45-73) % Lymph % (Auto) (20-40) % Bea[place]gard % (Auto) (2-11) % Eos % (Auto) (0-4) % Baso % (Auto) (0-2) % Lymph # (Auto) (1.2-4.9) X10*3/uL [place] # (Auto) (0.1-1.2) X10*3/uL Eos # (Auto) (0.0-0.4) X10*3/uL Baso # (Auto) (0.0-0.2) X10*3/uL Abs Immat Gran (auto) (0.00-0.03) X10*3/uL Absolute Neuts (auto) (2.0-8.3) x10*3/uL Absolute Nucleated RBC (0.0-0.012) X10*3/uL Nucleated RBC % (auto) (0.0-0.2) /100WBC Sodium 139 (135-145) mmol/L Potassium 4.3 (3.3-5.1) mmol/L Chloride 108 (96-108) mmol/L Carbon Dioxide 22 (22-29) mmol/L Anion Gap 13 (12-20) BUN 12 (9-16) mg/dL Creatinine 0.73 (0.5-1.4) mg/dL Estim Creat Clear Calc 137.5 Estimated GFR > 60 Random Glucose 113 (60-115) mg/dL Calcium 9.3 (8.4-10.2) mg/dL Total Bilirubin 0.2 (0.0-1.0) mg/dL AST 13 (5-31) U/L ALT 19 (0-31) U/L Alkaline Phosphatase 106 (39-117) U/L Troponin I High Sens < 3.5 (<3.5-17.0) ng/L Total Protein 7.1 (6.5-8.0) g/dL Albumin 4.2 (3.5-5.0) g/dL Urine Color Urine Appearance Urine pH (5.0-9.0) Ur Specific [place] (1.005-1.025) Urine Protein (Neg-Trace) mg/dL Urine Glucose (UA) (Negative) mg/dL Urine Ketones (Negative) mg/dL Urine Blood (Negative) Urine Nitrite (Negative) Ur Leukocyte Esterase (Negative) Influenza Type A (PCR) (Negative) Influenza Type B (PCR) (Negative) RSV RNA Qual (PCR) (Negative) SARS-CoV-2 RNA (RT-PCR) (Negative) ECG Data Attestation: I personally reviewed and interpreted this ECG as follows: Prior ECG tracings: available for review Interpretation: Ventricular rate of 106, SC normal, QRS normal, QT/QTC normal. EKG with sinus tachycardia no ST elevations or inversions concerning for ischemia. No significant changes when compared to EKG from March 2019 Critical Care Time Critical Care Time Critical Care Time: No Discharge Plan Discharge Clinical Impression: Asthma, Foreign body sensation in throat Patient Disposition: Home, Self-Care Instructions: Asthma (ED), How to Use a Breath-Activated Inhaler (ED), Wheezing (ED) Additional Instructions: Take your medications as prescribed. If you were prescribed antibiotics today, it is important that you take your medication to their entirety, do not skip any doses, do not finish them early. Follow-up with your primary care provider this week. Return to the emergency department with new or worsening symptoms. Such as fevers, chills, chest pain, shortness of breath, nausea, vomiting, dizziness, headache, vision changes, lethargy In case of emergency call 911 FLU/COVID/RSV pending you will get a call if positive. FINDINGS: No radiodense foreign bodies are identified. Lungs are clear. No consolidation, pneumothorax, or pleural effusion. Cardiac and mediastinal contours are normal. Pulmonary vasculature is unremarkable. Osseous structures are unremarkable. XR/XR chest 1V IMPRESSION: No acute cardiopulmonary findings Prescriptions: New prednisone 20 mg tablet 40 mg PO DAILY 5 Days Qty: 10 0RF albuterol sulfate 90 mcg/actuation aerosol powdr breath activated 2 inh inhalation Q4-6H PRN (Reason: shortness of breath or wheezing) Qty: 1 0RF albuterol sulfate 2.5 mg /3 mL (0.083 %) solution for nebulization 2.5 mg inhalation Q6H Qty: 75 0RF No Action albuterol sulfate 1.25 mg/3 mL solution for nebulization 2.5 mg inhalation Q4-6H PRN (Reason: shortness of breath or wheezing) Qty: 90 6RF levalbuterol tartrate [Xopenex HFA] 45 mcg/actuation HFA aerosol inhaler 2 puff inhalation Q4-6H PRN (Reason: shortness of breath) 30 Days Qty: 15 8RF prednisone 10 mg tablet 10 mg PO DAILY PRN (Reason: bronchospasm) 6 Days Qty: 12 0RF Rx Instructions: Take 3 tabs for 2 days, then 2 tabs for 2 days, then 1 tab for 2 days Qvar RediHaler 40 mcg/actuation HFA aerosol breath activated 1 inh inhalation BID Qty: 10.6 0RF albuterol sulfate 90 mcg/actuation HFA aerosol inhaler 2 puff PO Q4H PRN (Reason: Shortness Of Breath) sumatriptan succinate 100 mg tablet 50 - 100 mg PO Q2H PRN (Reason: migraine headache) 30 Days Qty: 12 6RF Rx Instructions: max 2 tabs per day or 4 tabs/week magnesium oxide 400 mg (241.3 mg magnesium) tablet 400 mg PO BEDTIME 30 Days Qty: 30 6RF Rx Instructions: may hold for loose stools topiramate 25 mg tablet See Rx Instructions PO DAILY 30 Days Qty: 60 3RF Rx Instructions: 1 tab qhs x's 1 week, then 2 tabs qhs orally daily; riboflavin (vitamin B2) 400 mg tablet 400 mg PO DAILY 30 Days Qty: 30 6RF Nexplanon 68 mg implant subdermal Referrals: [facility] [place] [facility] [Provider Group] - 3 days Marissa Best NP-C [Primary Care Provider] - 2 days Stand Alone Forms: Work/School Release
[2022-02-01] MEDS: Albuterol/Iprat 2.5/0.5MG 3 ML AMPUL.NEB INHALE (00:09)
[2022-02-01 00:12] VITALS: PULSE 104; RESP 18; O2SAT 98
[2022-02-01 00:51] VITALS: BP 160/75; PULSE 109; RESP 15; TEMP 37.2; O2SAT 98
[2022-02-01 00:53] LABS: MANUAL DIFF FLAG NO
[2022-02-01 00:54] LABS: Basophils Absolute Auto 0.1 X10*3/uL (0.0-0.2); Basophils Percent Auto 0.4 % (0-2); Eosinophils Absolute Auto 0.4 X10*3/uL (0.0-0.4); Eosinophils Percent Auto 3.5 % (0-4); Hematocrit 40.6 % (37.0-47.0); Imm Gran Abs Auto 0.04 X10*3/uL (0.00-0.03); Imm Gran Pct Auto 0.3 % (0.0-0.4); Lymphocytes Absolute Auto 3.3 X10*3/uL (1.2-4.9); Lymphocytes Percent Auto 28.2 % (20-40); Mean Corpuscular Hemoglobin 25.6 pg (27.0-33.0); Mean Corpuscular Volume 79.9 fL (80.0-98.0); Mean Platelet Volume 10.1 fL (9.4-12.3); Monocytes Absolute Auto 0.8 X10*3/uL (0.1-1.2); Monocytes Percent Auto 6.5 % (2-11); Neutrophils Absolute Auto 7.2 x10*3/uL (2.0-8.3); Neutrophils Percent Auto 61.1 % (45-73); Platelet Count 361 X10*3/uL (160-400); Red Blood Count 5.08 X10*6/uL (4.20-5.50); Red Cell Distribution Width 13.5 % (11.0-16.0); White Blood Count 11.7 X10*3/uL (4.8-10.8)
[2022-02-01 00:55] LABS: Appearance Urine Clear; Color Urine Yellow; Glucose Urine UA Negative (Negative); Leukocyte Esterase Urine Negative (Negative); Nitrite Urine Negative (Negative); Specific Gravity - Urine 1.025 (1.005-1.025); Urine Blood Negative (Negative); Urine Ketones Negative (Negative); Urine Protein Negative (Neg-Trace)
[2022-02-01] MEDS: dexAMETHasone sod phosphate 10 MG/ML VIAL IVPUSH (01:16)
[2022-02-01 01:21] LABS: Troponin-I High Sensitivity < 3.5 ng/L (<3.5-17.0)
--- NOTE | 2022-02-01 01:21 | PC.NURSE ---
pt alert and oriented, skin pwd, respirations even and unlabored, pt states that it feels like her magnesium pill might be stuck. pt speaking in full sentences, ls clear after the breathing treatment and pt reports feeling much better
[2022-02-01 01:42] LABS: Influenza A PCR NEGATIVE (Negative); Influenza B PCR NEGATIVE (Negative); Resp Syncy Virus RNA Qual PCR NEGATIVE (Negative); SARS COV2 PCR INHOUSE NEGATIVE (Negative)
[2022-02-01 01:45] LABS: Alanine Aminotransferase 19 U/L (0-31); Albumin Level 4.2 g/dL (3.5-5.0); Alkaline Phosphatase 106 U/L (39-117); Anion Gap 13 (12-20); Aspartate Amino Transferase 13 U/L (5-31); Bilirubin Total 0.2 mg/dL (0.0-1.0); Blood Urea Nitrogen 12 mg/dL (9-16); Calcium 9.3 mg/dL (8.4-10.2); Carbon Dioxide 22 mmol/L (22-29); Chloride 108 mmol/L (96-108); Creatinine Clr Calc Pharmacy 137.5; Estimated Glomerular Filt Rate > 60; Glucose Random 113 mg/dL (60-115); Potassium 4.3 mmol/L (3.3-5.1); Sodium 139 mmol/L (135-145); Total Protein 7.1 g/dL (6.5-8.0)
[2022-02-01 01:47] LABS: Magnesium 2.1 mg/dL (1.6-2.6)
== END 2022-02-01 02:00 | disposition home or self-care (01) ==
PROVIDERS: Physician Assistant; Emergency Provider Internal Medicine; PCP Nurse Practitioner Family
DX: R06.02 Shortness of breath (principal); J45.909 Unspecified asthma, uncomplicated; R09.89 Other specified symptoms and signs involving the circulatory and respiratory systems; R00.0 Tachycardia, unspecified; Z79.899 Other long term (current) drug therapy; Z20.822 Contact with and (suspected) exposure to COVID-19
CPT/HCPCS: 0241U; 36415; 71045; 80053; 81003; 83735; 84484; 85025; 93005; 94640; 99284; 99285; J1100

== ENCOUNTER 2022-05-17 10:26 | Outpatient (REF) | payer OTHER, SELFPAY ==
[2022-05-17 13:23] LABS: Syphilis Screen Nonreactive (Nonreactive)
[2022-05-20 08:56] LABS: HBc Num1 0.06 S/CO (0.00-0.79); HIV AB/AG Nonreactive (Nonreactive); HIV Num 1 0.09 S/CO (0.00-0.99); Hepatitis B Core Antibody Nonreactive (Nonreactive); ~HepC Num1 0.14 S/CO (0.00-0.79); ~Hepatitis C Antibody Nonreactive (Nonreactive)
== END 2022-05-17 10:27 | disposition home or self-care (01) ==
LOC: HO.LAB 10:26
PROVIDERS: Advanced Practice Midwife; PCP Internal Medicine; Visit Provider Internal Medicine
DX: Z11.4 Encounter for screening for human immunodeficiency virus [HIV] (principal); Z20.2 Contact with and (suspected) exposure to infections with a predominantly sexual mode of transmission
CPT/HCPCS: 36415; 86704; 86780; 86803; 87389

== ENCOUNTER → 2022-06-13 08:46 | Outpatient (BNVA) | payer OTHER, SELFPAY | PROVIDERS: PCP Internal Medicine; Referring Provider Internal Medicine; Visit Provider Nurse Practitioner Family | DX: K21.9 Gastro-esophageal reflux disease without esophagitis (principal); K58.2 Mixed irritable bowel syndrome; R10.10 Upper abdominal pain, unspecified; R14.0 Abdominal distension (gaseous); R10.13 Epigastric pain | CPT/HCPCS: 99202 ==

== ENCOUNTER 2022-06-13 10:33 | Outpatient (REF) | payer OTHER, SELFPAY ==
[2022-06-13 12:13] LABS: Lipase 15 U/L (8-78)
[2022-06-13 12:29] LABS: Folate 12.8 ng/mL (> or = 4.0); TSH reflex Free T4 1.37 uIU/mL (0.32-4.0); Vitamin B12 407 pg/mL (200-900)
[2022-06-15 11:32] LABS: H Pylori Breath Test Negative (Negative)
[2022-06-17 14:58] LABS: Transglutaminase Ab IgG <1.0 U/mL; Transglutaminase IgA <1.0 U/mL
[2022-06-18 16:15] LABS: Vitamin D 25-OH, D2 <4 ng/mL; Vitamin D 25-OH, D3 6 ng/mL; Vitamin D 25-OH, Total 6 ng/mL (30-100)
== END 2022-06-13 10:34 | disposition home or self-care (01) ==
LOC: HO.LAB 10:33
PROVIDERS: PCP Internal Medicine; Visit Provider Nurse Practitioner Family
DX: R19.7 Diarrhea, unspecified (principal); E55.9 Vitamin D deficiency, unspecified; K59.00 Constipation, unspecified; R10.10 Upper abdominal pain, unspecified; R14.0 Abdominal distension (gaseous); K58.2 Mixed irritable bowel syndrome; K21.9 Gastro-esophageal reflux disease without esophagitis
CPT/HCPCS: 36415; 82306; 82607; 82746; 83013; 83690; 84443; 86364

== ENCOUNTER 2022-07-11 09:41 | Outpatient (REF) | payer OTHER, SELFPAY ==
[2022-07-11 11:04] LABS: MANUAL DIFF FLAG NO
[2022-07-11 11:46] LABS: Basophils Percent Auto 0.4 % (0-2); Eosinophils Absolute Auto 0.4 X10*3/uL (0.0-0.4); Eosinophils Percent Auto 3.7 % (0-4); Hematocrit 41.3 % (37.0-47.0); Hemoglobin 13.4 g/dl (12.0-16.0); Imm Gran Abs Auto 0.05 X10*3/uL (0.00-0.03); Imm Gran Pct Auto 0.4 % (0.0-0.4); Lymphocytes Percent Auto 26.4 % (20-40); Mean Corpuscular HGB Conc 32.4 g/dl (31.0-35.0); Mean Corpuscular Hemoglobin 26.4 pg (27.0-33.0); Mean Corpuscular Volume 81.5 fL (80.0-98.0); Mean Platelet Volume 10.3 fL (9.4-12.3); Monocytes Absolute Auto 0.7 X10*3/uL (0.1-1.2); Monocytes Percent Auto 6.5 % (2-11); Neutrophils Percent Auto 62.6 % (45-73); Platelet Count 372 X10*3/uL (160-400); Red Blood Count 5.07 X10*6/uL (4.20-5.50); Red Cell Distribution Width 13.2 % (11.0-16.0); White Blood Count 11.2 X10*3/uL (4.8-10.8)
== END 2022-07-11 09:42 | disposition home or self-care (01) ==
LOC: HO.LAB 09:41
PROVIDERS: PCP Internal Medicine; Visit Provider Internal Medicine
DX: J45.909 Unspecified asthma, uncomplicated (principal); E66.01 Morbid (severe) obesity due to excess calories; Z68.42 Body mass index [BMI] 45.0-49.9, adult; G47.9 Sleep disorder, unspecified
CPT/HCPCS: 36415; 82785; 85025; 86003; 99202

== ENCOUNTER → 2022-07-18 08:50 | Outpatient (BNVA) | payer OTHER, SELFPAY | PROVIDERS: PCP Internal Medicine; Referring Provider Internal Medicine; Visit Provider Nurse Practitioner Family | DX: R10.10 Upper abdominal pain, unspecified (principal); K58.9 Irritable bowel syndrome, unspecified; K21.9 Gastro-esophageal reflux disease without esophagitis; Z79.899 Other long term (current) drug therapy | CPT/HCPCS: 99212 ==

== ENCOUNTER 2022-08-16 12:05 | Outpatient (REF) | payer OTHER, SELFPAY ==
[2022-08-20 02:20] LABS: Immunoglobulin E 503 kU/L (<OR=114)
== END 2022-08-16 12:06 | disposition home or self-care (01) ==
LOC: HO.LAB 12:05
PROVIDERS: Internal Medicine; PCP Internal Medicine; Visit Provider Nurse Practitioner Family
DX: J45.909 Unspecified asthma, uncomplicated (principal); K21.9 Gastro-esophageal reflux disease without esophagitis
CPT/HCPCS: 36415; 82785; 86003

== ENCOUNTER 2024-08-25 16:38 | Outpatient (AMB) | payer OTHER, SELFPAY ==
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
[2024-08-25 16:46] VITALS: BP 136/88; BMI 46.2
--- OUTSIDE RECORDS SUMMARY | 2024-08-25 18:21 | XMS_ITS | Clinical Summary ---
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 3 Active Xopenex HFA 45 MCG/ACT inhaler TAKE 2 PUFFS BY MOUTH EVERY 4 TO 6 HOURS NEEDED FOR DYSPNEA 3 Active magnesium oxide (Mag-Ox) 400 (240 Mg) MG tablet TAKE 1 TABLET BY MOUTH EVERY DAY AT BEDTIME *MAY HOLD FOR LOOSE STOOLS* 3 Active SUMAtriptan (Imitrex) 100 MG tablet PLEASE SEE ATTACHED FOR DETAILED DIRECTIONS 3 Active topiramate (Topamax) 25 MG tablet TAKE 2 TABLETS BY MOUTH EVERY DAY AT BEDTIME 3 Active ibuprofen 600 MG tablet Take 1 tablet by mouth every 8 (eight) hours if needed for pain. 4 Active Active Problems No known active problems Social History Tobacco Use Types Packs/Day Years Used Date Smoking Tobacco: Never Tobacco Cessation:Counseling Given: Not Answered Comments Unknown Sex and Gender Information Value Date Recorded Sex Assigned at Female 01/14/2022 10:33 AM EDT Legal Sex Female 10:33 AM EDT Gender Identity Choose not to disclose 10:33 AM EDT Sexual Orientation Choose not to disclose 2021 10:33 AM EDT Plan of Treatment Health Maintenance Due Date Last Done Comments Depression Screening 1991 HIV Screening 1991 SDOH Screening 1991 Disability Screening 1991 Alcohol/Substance Use Screening 2003 Family Planning (PISQ) 08/06/2006 Hepatitis C Screening 08/06/2009 Hepatitis B Vaccines (1 of 3 - 19+ 3-dose series) 08/06/2010 Pap Smear 08/06/2012 Cervical Cancer Screening 08/06/2021 HPV/Cotest 08/06/2021 COVID-19 Vaccine (1 - 2023-2 5 season) 2023 Influenza Vaccine (Season Ended) 2024 Tobacco Screening 03/25/2025 03/25/2024 DTaP/Tdap/Td Vaccines (2 - T d or Tdap) 04/22/2028 04/22/2018 Zoster Vaccines (1 of 2) 08/06/2041 RSV Patients and Pa tients Aged 60 years or older (1 - 1-dose 75+ series) 08/06/2066 HIB Vaccines Aged Out No longer eligi ble based on patient's age to complete this topic HPV Vaccines Aged Out No longer eligi ble based on patient's age to complete this topic Hepatitis A Vaccines Aged Out No long er eligible based on patient's age to complete this topic IPV Vaccines Aged Out No longer eligi ble based on patient's age to complete this topic Meningococcal B Vaccine Aged Out No l onger eligible based on patient's age to complete this topic Meningococcal Vaccine Aged Out No nelia hollie eligible based on patient's age to complete this topic Pneumococcal Vaccine: Pediat rics (0 to 5 Years) and At-Risk Patients (6 to 49) Years) Aged Out No longer elig ible based on patient's age to complete this topic RSV under 20 months Aged Out No longe r eligible based on patient's age to complete this topic Rotavirus Vaccines Aged Out No longer eligible based on patient's age to complete this topic Insurance [address] [place] [address]
== END 2024-08-25 17:07 | disposition home or self-care (01) ==
LOC: HO.HMCH 16:39
PROVIDERS: PCP Internal Medicine; Visit Provider Internal Medicine
DX: Z00.00 Encounter for general adult medical examination without abnormal findings (principal); F33.1 Major depressive disorder, recurrent, moderate; E66.01 Morbid (severe) obesity due to excess calories; Z68.42 Body mass index [BMI] 45.0-49.9, adult; M79.605 Pain in left leg

== ENCOUNTER → 2024-08-25 16:38 | Outpatient (BNVA) | payer OTHER, SELFPAY | PROVIDERS: PCP Internal Medicine; Visit Provider Internal Medicine | DX: Z00.00 Encounter for general adult medical examination without abnormal findings (principal); I25.10 Atherosclerotic heart disease of native coronary artery without angina pectoris; E11.9 Type 2 diabetes mellitus without complications; I10 Essential (primary) hypertension; I25.2 Old myocardial infarction; F33.1 Major depressive disorder, recurrent, moderate; E66.01 Morbid (severe) obesity due to excess calories; M79.605 Pain in left leg; E55.9 Vitamin D deficiency, unspecified; E78.5 Hyperlipidemia, unspecified; D64.9 Anemia, unspecified; Z68.42 Body mass index [BMI] 45.0-49.9, adult | CPT/HCPCS: 96127; 99212; 99395 ==

== ENCOUNTER 2024-10-04 00:19 | Emergency (ER) | payer OTHER, SELFPAY ==
--- NOTE | ~2024-10-04 | CT_ITS ---
CLINICAL HISTORY: trauma CT head without contrast Comparison: CT/SR - CT HEAD ANGIOGRAPHY WITH IV CONTRAST - 10/17/21 10:33 EDT Findings: No intra-axial mass, midline shift, hydrocephalus, or acute hemorrhage. Angelo-white matter differentiation is preserved. Mild mucosal thickening in the left maxillary sinus. The orbits are unremarkable. Mild soft tissue swelling in the left frontal scalp. There is no acute fracture. IMPRESSION: 1. No acute intracranial findings. 2. Mild left frontal scalp soft tissue swelling. This document has been electronically signed by: Angélica Talamantes MD on 10/04/2024 01:59:07
--- NOTE | ~2024-10-04 | CT_ITS ---
CLINICAL HISTORY: trauma CT cervical spine without contrast Comparison: None provided Findings: Straightening of the cervical spine is likely positional. No acute fractures or dislocations. No acute findings on limited view of the intracranial contents. Soft tissues of the neck are normal. No consolidation or effusion at the lung apices. IMPRESSION: No acute findings. This document has been electronically signed by: Angélica Talamantes MD on 10/04/2024 01:59:48
[2024-10-04 00:23] VITALS: BP 120/85; PULSE 97; RESP 20; TEMP 37.1; O2SAT 96; BMI 47.5
--- NOTE | 2024-10-04 01:01 | ED_ITS ---
HPI - General Adult General Chief complaint: Wound/Laceration Stated complaint: laceration to head Time Seen by Provider: 10/04/24 00:34 Source: patient Limitations: no limitations History of Present Illness ED Provider: Heather Evans PA-C HPI narrative: 34-year-old female presents with a head trauma. Patient states a kitchen cabinet, filled with the items including glass where, fell directly onto her head, patient has sustained a laceration medial to the left brow. The patient does not use a blood thinner, there was no loss of consciousness, patient now complains of head pain at the site of the initial impact and right-sided neck pain. Tetanus not up-to-date. Related Data Home Medications ?Medication ?Instructions ?Recorded ?Confirmed etonogestrel 68 mg subdermal subdermal 07/10/21 implant (Nexplanon) Previous Rx's ?Medication ?Instructions ?Recorded albuterol sulfate 2.5 mg/3 mL 2.5 mg (3 mL) inhalation Q6H #75 mL 02/01/22 (0.083 %) solution for nebulization albuterol sulfate 1.25 mg/3 mL 2.5 mg (6 mL) inhalatio n Q4-6H PRN 11/27/23 solution for nebulization shortness of breath or wheez ing #90 mL nebulizers (AeroEclipse II #1 ea 03/26/24 Nebulizer) bupropion HCl 150 mg 24 hr tablet, 150 mg PO QAM 90 da ys #90 tabs 08/25/24 extended release Xopenex HFA 45 mcg/actuation 2 puff inhalation Q4-6H P RN for 09/26/24 aerosol inhaler (levalbuterol dyspnea #15 ea tartrate) methocarbamol 750 mg tablet 1,500 mg (2 x 750 mg) PO B ID PRN 10/04/24 pain, moderate #20 tabs Allergies Allergy/AdvReac Type Severity Reaction Status Date / Time amoxicillin (AMOXICILLIN) Allergy Intermediate SWELLING Verified 10/04/24 00:29 cefaclor (From Ceclor) Allergy Intermediate SWELLING Verified 10/04/24 00:29 doxycycline Allergy Intermediate swelling Verified 10/04/24 00:29 peanut (PEANUTS) Allergy Intermediate HIVES Verified 10/04/24 00:29 shrimp (SHRIMP) Allergy Intermediate THROAT Verified 10/04/24 00:29 ITCHING Sulfa (Sulfonamide Allergy Intermediate SWELLING Verified 10/04/24 00:29 Antibiotics) Review of Systems Review of Systems: Yes all other systems are reviewed and are negative Constitutional: Constitutional: Denies fatigue, Denies fever(s) and Reports headache(s) ENT: Denies dizziness, Reports headache(s) and Reports neck pain Cardiovascular: Cardiovascular: Denies chest pain Gastrointestinal: Gastrointestinal: Denies abdominal pain, Denies nausea and Denies vomiting Musculoskeletal: Musculoskeletal: Reports neck pain and Reports stiffness Neurologic: Denies dizziness and Reports headache(s) Endocrine: Endocrine: Denies fatigue [facility] Past Medical History Attestation statement: The following information was validated with the patient. Medical History Allergic asthma Obese Family history of diabetes mellitus Chronic calculous cholecystitis Heart murmur Eczema Asthma Surgical History History of wisdom tooth extraction History of laparoscopic cholecystectomy (~01/27/20) Family History Family History (Updated 08/25/24 @ 17:01 by Manjula Gallegos MD) Father Diabetes Mother Hypertension S/P CABG x 3, Onset Age: 62 Maternal Grandmother [place] (myocardial infarction) Son In good health Son In good health Son In good health Daughter In good health Brother Mental health disorder Social History Social History Housing: Apartment Alcohol intake: current Alcohol intake frequency: holidays/special occasions only Alcohol type: wine Patient Tobacco Use Status: Never used Tobacco e-Cigarette/Vaping Use: Never Used Second Hand Smoke Exposure: No Advance Directives: No Advance Directives Information Provided: No service: No Current occupational status: unemployed Sexual orientation: Straight/Heterosexual Gender identity: Female Cognitive needs: No Hearing needs: No Vision needs: No Physical Exam ED Vital Signs: Vital Signs - 24 hr 10/04/24 00:23 Temperature 98.8 F Pulse Rate 97 Respiratory Rate 20 Blood Pressure 120/85 Pulse Oximetry 96 Oxygen Delivery Method Room Air BMI result Body Mass Index 47.5 Const Other: Alert, contusion noted over forehead with the overlying ecchymosis, 2 cm linear laceration noted medial to left brow, no longer bleeding is superficial Orientation/consciousness: patient oriented x3 Eyes Other: No pain with extraocular eye movements, and they are intact Neck Neck: Yes full ROM Resp Effort & Inspection: normal respiratory effort Cardio Other: Normal peripheral perfusion Skin Other: Warm dry no rash Neuro General: patient oriented x3, gait normal, no focal motor deficits and CN's II- XI intact bilaterally Psych Other: Cooperative Medications Administered Discontinued Medications Generic Name Dose Route Start Last Admin Trade Name Fiona PRN Reason Stop Dose Admin Diphtheria/Tetanus/Acell Pertussis 0.5 ml 10/04/24 01:19 10/04/24 01:28 Diphth,Pertus(Acell),Tet Adult 0.5 Ml Syringe IM 10/04/24 01:20 0.5 ml .ONCE ONE Administration Lidocaine/Epinephrine 10 ml 10/04/24 01:00 10/04/24 01:28 Lidocaine Hcl 1%/Epi 1:100,000 10 Ml Vial INFILTRATI 10/04/24 01:01 10 ml ONCE ONE Administration Procedures Laceration Laceration 1: Site: face Side (If applicable): left Size (cm): 2 Description: linear Depth: simple, single layer Local Anesthetic: lidocaine 1% and with epi Amount of anesthesia used (mL): 2 Pre-repair: irrigated extensively Skin layer closed with: vicryl Size (cm): 5-0 Number of sutures: 6 Technique: simple, interrupted Medical Decision Making Medical Decision Making MDM Narrative: 34-year-old female presents with a head trauma. Patient states a kitchen cabinet, filled with the items including glass where, fell directly onto her head, patient has sustained a laceration medial to the left brow. The patient does not use a blood thinner, there was no loss of consciousness, patient now complains of head pain at the site of the initial impact and right-sided neck pain. Tetanus not up-to-date. No chronic issues History: Per patient I have considered the following differential diagnoses: Intracranial hemorrhage, skull fracture, cervical spine injury, laceration, contusion Plan: Given the mechanism of injury, I am scanning the patient's head and neck. It is reassuring that she has no neurologic deficits, she is not actively vomiting and is not altered to suggest intracranial hemorrhage. She does have neck pain, although it is lateral, likely paraspinous. The laceration will require simple repair, updating tetanus. I have no suspicion for associated facial bone fracture, she was struck over the forehead, there was no bleeding from either nares, no deformity noted over the nose, extraocular eye movements are intact. I have independently reviewed the following tests: CT brain:IMPRESSION: 1. No acute intracranial findings. 2. Mild left frontal scalp soft tissue swelling. CT cervical spine:Findings: Straightening of the cervical spine is likely positional. No acute fractures or dislocations. No acute findings on limited view of the intracranial contents. Soft tissues of the neck are normal. No consolidation or effusion at the lung apices. IMPRESSION: No acute findings. Discharge Plan Discharge Clinical Impression: Contusion of forehead, Forehead laceration Patient Disposition: Home, Self-Care Instructions: Laceration (ED), Facial Contusion (ED) Additional Instructions: The CT scan of the head and neck were normal, you did not sustain any acute injuries beyond a contusion of the forehead and a laceration. Six stitches were used to repair the laceration, the suture is absorbable, they do not need to be removed, they will fall out on their own. Follow up with your primary care provider as needed. Use the methocarbamol as needed for pain, this is a muscle relaxant. This medication can cause drowsiness, do not drive or operate machinery while taking this medication. Prescriptions: New methocarbamol 750 mg tablet 1,500 mg PO BID PRN (Reason: pain, moderate) Qty: 20 0RF No Action albuterol sulfate 1.25 mg/3 mL solution for nebulization 2.5 mg inhalation Q4-6H PRN (Reason: shortness of breath or wheezing) Qty: 90 6RF (DME) nebulizers [AeroEclipse II Nebulizer] [facility] See Rx Instructions .Route Qty: 1 0RF Rx Instructions: As directed levalbuterol tartrate [Xopenex HFA] 45 mcg/actuation HFA aerosol inhaler 2 puff inhalation Q4-6H PRN (Reason: for dyspnea) Qty: 15 0RF albuterol sulfate 2.5 mg /3 mL (0.083 %) solution for nebulization 2.5 mg inhalation Q6H Qty: 75 0RF Nexplanon 68 mg implant subdermal bupropion HCl 150 mg tablet extended release 24 hr 150 mg PO QAM 90 Days Qty: 90 1RF Print Language: [place]
--- NOTE | 2024-10-04 01:14 | PC.NURSE ---
laceration cleaned and provider into suture laceration, pt is a&o, answering questions appropriately.
[2024-10-04] MEDS: Lidocaine HCl 1%/Epi 1:100,000 10 ML VIAL INFILTRATI (01:28)
[2024-10-04] MEDS: Diphth,Pertus(ACell),Tet Adult 0.5 ML SYRINGE IM (01:28)
--- NOTE | 2024-10-04 02:32 | PC.NURSE ---
medicated pt per mar,
[2024-10-04 02:53] VITALS: BP 139/82; PULSE 81; RESP 16; TEMP 37; O2SAT 98
--- NOTE | 2024-10-04 02:54 | PC.NURSE ---
reviewed discharge instruction with pt. pt verbalized understanding, no sign of distress.
[2024-10-04 02:55] VITALS: BP 139/82; PULSE 81; RESP 16; TEMP 37; O2SAT 98
== END 2024-10-04 02:56 | disposition home or self-care (01) ==
PROVIDERS: Emergency Provider Emergency Medicine; PCP Internal Medicine
DX: S01.81XA Laceration without foreign body of other part of head, initial encounter (principal); S00.83XA Contusion of other part of head, initial encounter; W20.8XXA Other cause of strike by thrown, projected or falling object, initial encounter; Y93.89 Activity, other specified; Y92.030 Kitchen in apartment as the place of occurrence of the external cause; Y99.9 Unspecified external cause status; Z23 Encounter for immunization
CPT/HCPCS: 12011; 70450; 72125; 90471; 90715; 99284; J2004

== ENCOUNTER → 2024-10-04 01:13 | Outpatient (BNV) | payer OTHER, SELFPAY | PROVIDERS: Emergency Provider Emergency Medicine; PCP Internal Medicine; Visit Provider Radiology Diagnostic Radiology | DX: S01.81XA Laceration without foreign body of other part of head, initial encounter (principal); W25.XXXA Contact with sharp glass, initial encounter | CPT/HCPCS: 70450; 72125 ==

== ENCOUNTER 2024-10-29 17:23 | Emergency (ER) | payer OTHER, SELFPAY ==
[2024-10-29 18:21] VITALS: BP 181/77; PULSE 92; RESP 18; TEMP 36.6; O2SAT 98; BMI 46.6
--- NOTE | 2024-10-29 18:21 | ED.URI ---
HPI - URI/Sore Throat General Chief Complaint: Upper Respiratory Symptoms Stated Complaint: ? strep throat Time Seen by Provider: 10/29/24 19:18 Source: patient Mode of arrival: ambulatory Limitations: no limitations History of Present Illness ED Provider: Caridad Barbour APRN HPI Narrative: 34-year-old female here with complaints of sore throat for 2 days. Patient reports she initially had a rash but this resolved. She denies any difficulty breathing, difficulty swallowing, shortness of breath, chest pain, fevers, chills, vomiting, neck pain, neck stiffness, headache. 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 Data Home Medications ?Medication ?Instructions ?Recorded ?Confirmed etonogestrel 68 mg subdermal subdermal 07/10/21 08/25/24 implant (Nexplanon) Previous Rx's ?Medication ?Instructions ?Recorded albuterol sulfate 2.5 mg/3 mL 2.5 mg (3 mL) inhalation Q6H #75 mL 02/01/22 (0.083 %) solution for nebulization albuterol sulfate 1.25 mg/3 mL 2.5 mg (6 mL) inhalation Q4-6H PRN 11/27/23 solution for nebulization shortness of breath or wheezing #90 mL nebulizers (AeroEclipse II #1 ea 03/26/24 Nebulizer) bupropion HCl 150 mg 24 hr tablet, 150 mg PO QAM 90 days #90 tabs 08/25/24 extended release Xopenex HFA 45 mcg/actuation 2 puff inhalation Q4-6H PRN for 09/26/24 aerosol inhaler (levalbuterol dyspnea #15 ea tartrate) methocarbamol 750 mg tablet 1,500 mg (2 x 750 mg) PO BID PRN 10/04/24 pain, moderate #20 tabs clindamycin phosphate 100 mg 100 mg vaginal BEDTIME 3 days #3 ea 10/13/24 vaginal suppository Allergies Allergy/AdvReac Type Severity Reaction Status Date / Time amoxicillin (AMOXICILLIN) Allergy Intermediate SWELLING Verified 10/29/24 18:22 cefaclor (From Ceclor) Allergy Intermediate SWELLING Verified 10/29/24 18:22 doxycycline Allergy Intermediate swelling Verified 10/29/24 18:22 peanut (PEANUTS) Allergy Intermediate HIVES Verified 10/29/24 18:22 shrimp (SHRIMP) Allergy Intermediate THROAT Verified 10/29/24 18:22 ITCHING Sulfa (Sulfonamide Allergy Intermediate SWELLING Verified 10/29/24 18:22 Antibiotics) Review of Systems Review of Systems: Yes all other systems are reviewed and are negative Constitutional: Constitutional: Reports no additional constitutional complaints, Denies body ache(s), Denies chills, Denies fever(s), Denies headache(s) and Denies weakness Eyes: Eyes: Reports no additional eye complaints and Denies change in vision ENT: Reports system reviewed and no additional complaints, except as documented, Denies dizziness, Denies headache(s), Denies nasal congestion, Denies nasal discharge, Denies neck pain and Reports sore throat Cardiovascular: Cardiovascular: Reports no additional cardiovascular complaints, Denies chest pain, Denies leg edema and Denies dyspnea Respiratory: Respiratory: Reports no additional respiratory complaints, Denies cough and Denies dyspnea Gastrointestinal: Gastrointestinal: Reports no additional gastrointestinal complaints, Denies abdominal pain, Denies diarrhea, Denies nausea and Denies vomiting Genitourinary: Genitourinary: Reports no additional female genitourinary complaints and Denies urinary incontinence Musculoskeletal: Musculoskeletal: Reports no additional musculoskeletal complaints, Denies back pain, Denies arthralgias, Denies joint swelling, Denies neck pain, Denies numbness and Denies tingling Integumentary/Breasts: Skin/Breast: Reports system reviewed and no additional complaints, except as docu and Reports rash Neurologic: Reports system reviewed and no additional complaints, except as documented, Denies Abnormal speech present, Denies dizziness, Denies headache(s), Denies numbness, Denies tingling and Denies weakness [facility] Past Medical History Attestation statement: The following information was validated with the patient. Source: old records reviewed and nursing notes reviewed Medical History Allergic asthma Obese Family history of diabetes mellitus Chronic calculous cholecystitis Heart murmur Eczema Asthma Surgical History History of wisdom tooth extraction History of laparoscopic cholecystectomy (~01/27/20) Family History Family History Father Diabetes Mother Hypertension S/P CABG x 3, Onset Age: 62 Maternal Grandmother [place] (myocardial infarction) Son In good health Son In good health Son In good health Daughter In good health Brother Mental health disorder Social History Social History Housing: Apartment Alcohol intake: current Alcohol intake frequency: holidays/special occasions only Alcohol type: wine Patient Tobacco Use Status: Never used Tobacco e-Cigarette/Vaping Use: Never Used Second Hand Smoke Exposure: No Advance Directives: No Do you have a plan to hurt others: No Plan service: No Current occupational status: unemployed Sexual orientation: Straight/Heterosexual Gender identity: Female Cognitive needs: No Hearing needs: No Vision needs: No Physical Exam Vital Signs: Vital Signs: Last Vital Signs Temp 98 F 10/29/24 19:49 Pulse 92 10/29/24 19:49 Resp 18 10/29/24 19:49 BP 181/77 H 10/29/24 19:49 Pulse Ox 98 10/29/24 19:49 O2 Del Method Room Air 10/29/24 19:49 BMI result Body Mass Index 46.6 Const: General: cooperative, healthy appearing, comfortable and no acute distress Orientation/consciousness: patient oriented x3 Limitations: no limitations HEENT: Head: Yes normal to inspection Ears: hearing grossly normal bilaterally and TM's normal bilaterally General nose exam: Normal external nose present Face and sinus: Yes normal facial exam Mouth: Normal oral and palatal mucosa present Throat: Yes posterior oropharynx normal, Yes tonsils normal and Yes uvula midline Eyes: General: appearance normal, both eyes and all related structures Pupils: Equal, round and reactive pupils present Neck: Neck: Yes normal visual inspection, Yes full ROM, Yes no lymphadenopathy and Yes no meningeal signs Chest: Chest palpation & inspection: normal inspection of the chest Resp: Effort & Inspection: normal respiratory effort Auscultation: clear to auscultation bilaterally Cardio: Rate: regular rate Rhythm: regular rhythm Peripheral pulses: Peripheral pulses 2+ throughout GI: Inspection: Yes normal to inspection Palpation (GI): Soft to palpation and nontender Auscultation: normal bowel sounds Back/Spine/Pelvis: Thoracic/Lumbar Spine: thoracic and lumbar spine normal to inspection Skin: General skin exam: no rashes or lesions noted Neuro: General: patient oriented x3, no meningeal signs, no focal motor deficits and normal sensation to monofilament Cranial nerves: Yes Equal, round and reactive pupils present Cognition (Neuro): normal cognition Speech: No Abnormal speech present Gait exam (Neuro): Normal gait present Motor exam (neuro): 5/5 motor strength present throughout Extrem: General: Yes normal to inspection Course Course Course Narrative: Caridad Barbour DIRECTOR TALENT MANAGEMENT 10/29 534 This is a rapid medical exam. Defer additional HPI, ROS and PE to primary provider. 34 yo female with PMH of asthma, heart murmur here with sore throat. 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 Will obtain viral testing, strep testing VSS Medical Decision Making Medical Decision Making MDM Narrative: 34-year-old female here with complaints of sore throat for 2 days. Patient reports she initially had a rash but this resolved. She denies any difficulty breathing, difficulty swallowing, shortness of breath, chest pain, fevers, chills, vomiting, neck pain, neck stiffness, headache. 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 Posterior oropharynx is normal in appearance. There was no meningeal signs or lymphadenopathy. The uvula is midline. There is no tonsillar erythema or exudate. Patient is tolerating secretions with no difficulty Will send viral testing, strep testing Differential Diagnosis Differential Diagnoses: The differential diagnosis associated with the presentation includes Pharyngitis, viral syndrome Low suspicion for RPA, CONSERVATION ASSISTANT, epiglottitis, Joaquim's angina Admission/Observation Consideration of admission/observation: Escalation of care including admission/observation considered Low suspicion for RPA, CONSERVATION ASSISTANT, epiglottitis, Joaquim's angina requiring advanced imaging, urgent ENT consultation and or admission Lab Data [facility] Lab Attestation statement: I reviewed the patient's lab results. Labs: Lab Results 10/29/24 Range/Units 18:29 Influenza Type A (PCR) NEGATIVE (Negative) Influenza Type B (PCR) NEGATIVE (Negative) RSV RNA Qual (PCR) NEGATIVE (Negative) SARS-CoV-2 RNA (RT-PCR) NEGATIVE (Negative) S. pyogenes GrpA REILLY Negative (Negative) Tests considered The following testing was considered but not selected: Low suspicion for RPA, CONSERVATION ASSISTANT, epiglottitis, Joaquim's angina requiring advanced imaging Prescription Management I considered prescription management with: Antibiotic Discharge Plan Discharge Clinical Impression: Pharyngitis Patient Disposition: Home, Self-Care Instructions: Pharyngitis (ED) Additional Instructions: Your testing for flu, COVID, RSV are negative Your strep test is negative Take Motrin or Tylenol for pain or fever Saltwater gargles Tea with honey Rest Follow-up with your primary care doctor for any continued symptoms Prescriptions: No Action albuterol sulfate 1.25 mg/3 mL solution for nebulization 2.5 mg inhalation Q4-6H PRN (Reason: shortness of breath or wheezing) Qty: 90 6RF (DME) nebulizers [AeroEclipse II Nebulizer] Misc See Rx Instructions .Route Qty: 1 0RF Rx Instructions: As directed levalbuterol tartrate [Xopenex HFA] 45 mcg/actuation HFA aerosol inhaler 2 puff inhalation Q4-6H PRN (Reason: for dyspnea) Qty: 15 0RF clindamycin phosphate 100 mg suppository 100 mg vaginal BEDTIME 3 Days Qty: 3 0RF albuterol sulfate 2.5 mg /3 mL (0.083 %) solution for nebulization 2.5 mg inhalation Q6H Qty: 75 0RF methocarbamol 750 mg tablet 1,500 mg PO BID PRN (Reason: pain, moderate) Qty: 20 0RF Nexplanon 68 mg implant subdermal bupropion HCl 150 mg tablet extended release 24 hr 150 mg PO QAM 90 Days Qty: 90 1RF Referrals: Manjula Love MD [Primary Care Provider, Internal Medicine] Interventions: ED Discharge Assessment Last Done: 10/29/24 19:49 Discharge Date/Time: 10/29/24 19:49 Print Language: Japanese
[2024-10-29 18:44] LABS: IDNOW Serial# 58CA691E; Strep A Nucleic Acid Negative (Negative)
[2024-10-29 19:16] LABS: Resp Syncy Virus RNA Qual PCR NEGATIVE (Negative); SARS COV2 PCR INHOUSE NEGATIVE (Negative)
[2024-10-29 19:49] VITALS: BP 181/77; PULSE 92; RESP 18; TEMP 36.6; O2SAT 98
== END 2024-10-29 19:49 | disposition home or self-care (01) ==
PROVIDERS: Nurse Practitioner Family; Emergency Provider Emergency Medicine; PCP Internal Medicine
DX: J02.9 Acute pharyngitis, unspecified (principal); Z03.818 Encounter for observation for suspected exposure to other biological agents ruled out
CPT/HCPCS: 87637; 87651; 99282; 99283

== ENCOUNTER 2024-12-01 09:06 | Outpatient (REF) | payer OTHER, SELFPAY ==
--- NOTE | ~2024-12-01 | XR_ITS ---
Exam: 2 view left tibia and fibula TECHNIQUE: AP and lateral view lower extremity, left lower leg INDICATION: Left leg pain Prior: None FINDINGS: There is no fracture, deformity, periosteal new bone formation, or other abnormalities. XR/XR tibia fibula LT 2V IMPRESSION: Unremarkable left tibia and fibula. Electronically signed by: Kiel Randolph MD 12/01/2024 09:48 AM EDT
[2024-12-01 09:19] LABS: MANUAL DIFF FLAG NO
[2024-12-01 09:43] LABS: Hematocrit 37.2 % (37.0-47.0); Hemoglobin 12.3 g/dl (12.0-16.0); Imm Gran Abs Auto 0.03 X10*3/uL (0.00-0.03); Imm Gran Pct Auto 0.3 % (0.0-0.4); Lymphocytes Absolute Auto 2.4 X10*3/uL (1.2-4.9); Mean Corpuscular HGB Conc 33.1 g/dl (31.0-35.0); Mean Corpuscular Hemoglobin 26.5 pg (27.0-33.0); Mean Corpuscular Volume 80.2 fL (80.0-98.0); NRBC Abs Auto 0.000 X10*3/uL (0.0-0.012); NRBC Pct Auto 0.0 /100WBC (0.0-0.2); Platelet Count 350 X10*3/uL (160-400); Red Blood Count 4.64 X10*6/uL (4.20-5.50); White Blood Count 10.6 X10*3/uL (4.8-10.8)
[2024-12-01 10:29] LABS: Alanine Aminotransferase 19 U/L (0-31); Albumin Level 4.3 g/dL (3.5-5.0); Alkaline Phosphatase 77 U/L (39-117); Anion Gap 10 (12-20); Aspartate Amino Transferase 17 U/L (5-31); Blood Urea Nitrogen 11 mg/dL (9-16); Calcium 9.5 mg/dL (8.4-10.2); Carbon Dioxide 27 mmol/L (22-29); Chloride 106 mmol/L (96-108); Cholesterol 182 mg/dL (<200); Estimated Glomerular Filt Rate > 60; HDL Cholesterol 45 mg/dL (>40); Iron 43 mcg/dL (30-160); Percent Iron Saturation 15 % (15-50); Potassium 4.1 mmol/L (3.3-5.1); Sodium 139 mmol/L (135-145); Total Iron Binding Capacity 284 mcg/dL (228-428); Total Protein 7.2 g/dL (6.5-8.0); Triglycerides 114 mg/dL (<150); Unsaturated Iron Binding 241 ug/dL
--- OUTSIDE RECORDS SUMMARY | 2024-12-01 10:42 | XMS_ITS | Clinical Summary ---
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 Name Role Phone Unavailable Primary Care Provider [...] Use Screening 2003 Family Planning (PISQ) 08/06/2006 HPV Vaccines (1 - 3-dose series) 08/06/2006 Hepatitis C Screening 08/06/2009 Hepatitis B Vaccines (1 of 3 - 19+ 3-dose series) 08/06/2010 Pap Smear 08/06/2012 Cervical Cancer Screening 08/06/2021 HPV/Cotest 08/06/2021 COVID-19 Vaccine (1 - 2023-2 5 season) 2024 Influenza Vaccine (#1) 2024 Tobacco Screening 03/25/2025 03/25/2024 DTaP/Tdap/Td Vaccines [...] Years) and At-Risk Patients (6 to 49) Years Aged Out No longer eligi ble based on patient's age to complete this topic RSV under 20 months Aged Out No longe r eligible based on patient's age to complete this topic Rotavirus Vaccines Aged Out No longer eligible based on patient's age to complete this topic Insurance [facility] (O)
== END 2024-12-01 09:07 | disposition home or self-care (01) ==
LOC: HO.XRAY 09:06
PROVIDERS: PCP Internal Medicine; Visit Provider Internal Medicine
DX: E78.5 Hyperlipidemia, unspecified (principal); D64.9 Anemia, unspecified; E55.9 Vitamin D deficiency, unspecified; M79.605 Pain in left leg; Z00.00 Encounter for general adult medical examination without abnormal findings
CPT/HCPCS: 36415; 73590; 80053; 80061; 82306; 83540; 85025

== ENCOUNTER → 2024-12-01 09:25 | Outpatient (BNV) | payer OTHER, SELFPAY | PROVIDERS: PCP Internal Medicine; Visit Provider Radiology Diagnostic Radiology | DX: M79.605 Pain in left leg (principal) | CPT/HCPCS: 73590 ==

== ENCOUNTER 2024-12-04 23:02 | Emergency (ER) | payer OTHER, SELFPAY ==
[2024-12-04 23:08] VITALS: BP 148/90; BP 158/73; PULSE 102; PULSE 103; RESP 20; TEMP 36.6; O2SAT 98; BMI 48.0
--- NOTE | 2024-12-04 23:25 | ED.GENADULT ---
HPI - General Adult General Chief complaint: Allergic Reaction Stated complaint: Hx of ax & shellfish allergy no allergic rxn seen Time Seen by Provider: 12/04/24 23:08 Source: patient Limitations: no limitations History of Present Illness ED Provider: Heather Evans PA-C HPI narrative: 34-year-old female with a history of she will food allergy, asthma, anxiety who presents with allergic reaction. Patient accidentally ate rice that had voice her saw send it. Patient now feels the sensation that her throat is tight, her chest is heavy, and she has noted some wheezing. Denies swelling of lips, tongue, difficulty swallowing, no urticaria. The patient took 50 mg of Benadryl pre arrival. She does not have an EpiPen. Related Data Home Medications ?Medication ?Instructions ?Recorded ?Confirmed etonogestrel 68 mg subdermal subdermal 07/10/21 08/25/24 implant (Nexplanon) Previous Rx's ?Medication ?Instructions ?Recorded albuterol sulfate 2.5 mg/3 mL 2.5 mg (3 mL) inhalation Q6H #75 mL 02/01/22 (0.083 %) solution for nebulization nebulizers (AeroEclipse II #1 ea 03/26/24 Nebulizer) bupropion HCl 150 mg 24 hr tablet, 150 mg PO QAM 90 days #90 tabs 08/25/24 extended release methocarbamol 750 mg tablet 1,500 mg (2 x 750 mg) PO BID PRN 10/04/24 pain, moderate #20 tabs clindamycin phosphate 100 mg 100 mg vaginal BEDTIME 3 days #3 ea 10/13/24 vaginal suppository azithromycin 250 mg tablet 250 mg PO DAILY 5 days #6 tabs 11/01/24 Xopenex HFA 45 mcg/actuation 2 puff inhalation Q4-6H PRN for 11/25/24 aerosol inhaler (levalbuterol dyspnea #15 ea tartrate) albuterol sulfate 1.25 mg/3 mL 2.5 mg (6 mL) inhalation Q4-6H PRN 11/25/24 solution for nebulization shortness of breath or wheezing #90 mL epinephrine 0.3 mg/0.3 mL 0.3 mg (0.3 mL) IM Q10M PRN 12/05/24 injection, auto-injector (EpiPen anaphylaxis #2 ea 2-Tommy) Allergies Allergy/AdvReac Type Severity Reaction Status Date / Time amoxicillin (AMOXICILLIN) Allergy Intermediate SWELLING Verified 12/04/24 23:09 cefaclor (From Ceclor) Allergy Intermediate SWELLING Verified 12/04/24 23:09 doxycycline Allergy Intermediate swelling Verified 12/04/24 23:09 peanut (PEANUTS) Allergy Intermediate HIVES Verified 12/04/24 23:09 shrimp (SHRIMP) Allergy Intermediate THROAT Verified 12/04/24 23:09 ITCHING Sulfa (Sulfonamide Allergy Intermediate SWELLING Verified 12/04/24 23:09 Antibiotics) Review of Systems Review of Systems: Yes all other systems are reviewed and are negative Constitutional: Constitutional: Denies fatigue and Denies fever(s) ENT: Denies dysphagia, Denies lip swelling, Denies odynophagia, Reports sore throat, Denies throat swelling and Denies tongue swelling Cardiovascular: Cardiovascular: Denies chest pain and Denies dyspnea Respiratory: Respiratory: Denies cough, Denies dyspnea, Denies stridor and Reports wheezing Gastrointestinal: Gastrointestinal: Denies dysphagia, Denies diarrhea, Denies nausea, Denies odynophagia and Denies vomiting Endocrine: Endocrine: Denies fatigue Allergic/Immunologic: Allergic/Immunologic: Denies lip swelling, Denies throat swelling, Denies tongue swelling and Reports wheezing PMF Past Medical History Attestation statement: The following information was validated with the patient. Medical History Allergic asthma Obese Family history of diabetes mellitus Chronic calculous cholecystitis Heart murmur Eczema Asthma Surgical History History of wisdom tooth extraction History of laparoscopic cholecystectomy (~01/27/20) Family History Family History Father Diabetes Mother Hypertension S/P CABG x 3, Onset Age: 62 Maternal Grandmother [place] (myocardial infarction) Son In good health Son In good health Son In good health Daughter In good health Brother Mental health disorder Social History Social History Housing: Apartment Alcohol intake: current Alcohol intake frequency: holidays/special occasions only Alcohol type: wine Patient Tobacco Use Status: Never used Tobacco e-Cigarette/Vaping Use: Never Used Second Hand Smoke Exposure: No Advance Directives: No Advance Directives Information Provided: Yes Do you have a plan to hurt others: No Plan service: No Current occupational status: unemployed Sexual orientation: Straight/Heterosexual Gender identity: Female Cognitive needs: No Hearing needs: No Vision needs: No Physical Exam ED Vital Signs: Vital Signs - 24 hr 12/04/24 23:08 12/04/24 23:49 Temperature 98 F Pulse Rate 103 H 103 H Respiratory Rate 20 Blood Pressure 158/73 H 141/80 H Pulse Oximetry 98 Oxygen Delivery Method Room Air BMI result Body Mass Index 48.0 Const Other: Alert well-appearing Orientation/consciousness: patient oriented x3 HENMT Other: No angioedema of lips, tongue not swollen, oropharynx is clear, uvula midline it is not cyanotic nor edematous, no facial swelling Resp Other: 1 occasional wheeze anteriorly, lung marcos clear, no stridor Effort & Inspection: normal respiratory effort Cardio Other: Normal peripheral perfusion Skin Other: Warm dry no rash Neuro General: patient oriented x3, gait normal, no focal motor deficits and CN's II-XI intact bilaterally Psych Other: Cooperative, somewhat anxious Course Reevaluation(s) Reevaluation #1: No progression of reaction, the patient's initial symptoms have resolved we will discharge Time: 02:06 Medications Administered Discontinued Medications Generic Name Dose Route Start Last Admin Trade Name Freq PRN Reason Stop Dose Admin Epinephrine 0.3 mg 12/04/24 23:29 12/04/24 23:49 Epinephrine 1 Mg/Ml Vial IM 12/04/24 23:30 0.3 mg STAT STA Administration Famotidine 20 mg 12/04/24 23:29 12/04/24 23:52 Famotidine/Pf 20 Mg/2 Ml Vial IVPUSH 12/04/24 23:30 20 mg ONCE ONE Administration Methylprednisolone Sodium Succinate 60 mg 12/04/24 23:29 12/04/24 23:52 Methylprednisolone Sod Succ 125 Mg/2 Ml Vial IVPUSH 12/04/24 23:30 60 mg ONCE ONE Administration Medical Decision Making Medical Decision Making MDM Narrative: 34-year-old female with a history of she will food allergy, asthma, anxiety who presents with allergic reaction. Patient accidentally ate rice that had voice her saw send it. Patient now feels the sensation that her throat is tight, her chest is heavy, and she has noted some wheezing. Denies swelling of lips, tongue, difficulty swallowing, no urticaria. The patient took 50 mg of Benadryl pre arrival. She does not have an EpiPen. Problem: See pathology History: Per patient I have considered the following differential diagnoses: Anaphylaxis, allergic reaction, urticaria, angioedema Plan: Given patient's symptoms, we will be giving intramuscular epinephrine, Solu-Medrol famotidine fluid and we will continue to monitor your over the next 3 hours for progression of reaction. No indication for labs or imaging at this time Differential Diagnosis Differential Diagnoses: The differential diagnosis associated with the presentation includes See medical decision-making Admission/Observation Consideration of admission/observation: Escalation of care including admission/observation considered Not applicable Discharge Plan Discharge Clinical Impression: Allergic reaction Patient Disposition: Home, Self-Care Instructions: General Allergic Reaction (ED) Additional Instructions: You were treated for a suspect allergic reaction. If you develop similar symptoms, immediately administer the EpiPen to yourself, then seek medical attention. You should read the instructions of the EpiPen to familiarize yourself with its use. Prescriptions: New epinephrine [EpiPen 2-Tommy] 0.3 mg/0.3 mL auto-injector 0.3 mg IM Q10M PRN (Reason: anaphylaxis) Qty: 2 0RF Rx Instructions: for 2 doses No Action (DME) nebulizers [AeroEclipse II Nebulizer] [facility] [place], [place] See Rx Instructions .Route Qty: 1 0RF Rx Instructions: As directed clindamycin phosphate 100 mg suppository 100 mg vaginal BEDTIME 3 Days Qty: 3 0RF azithromycin 250 mg tablet 250 mg PO DAILY 5 Days Qty: 6 0RF Rx Instructions: Take 2 tabs the 1st day, then 1 tab once a day albuterol sulfate 1.25 mg/3 mL solution for nebulization 2.5 mg inhalation Q4-6H PRN (Reason: shortness of breath or wheezing) Qty: 90 6RF levalbuterol tartrate [Xopenex HFA] 45 mcg/actuation HFA aerosol inhaler 2 puff inhalation Q4-6H PRN (Reason: for dyspnea) Qty: 15 0RF albuterol sulfate 2.5 mg /3 mL (0.083 %) solution for nebulization 2.5 mg inhalation Q6H Qty: 75 0RF methocarbamol 750 mg tablet 1,500 mg PO BID PRN (Reason: pain, moderate) Qty: 20 0RF Nexplanon 68 mg implant subdermal bupropion HCl 150 mg tablet extended release 24 hr 150 mg PO QAM 90 Days Qty: 90 1RF Print Language: Swedish
[2024-12-04 23:49] VITALS: BP 141/80; PULSE 103
--- OUTSIDE RECORDS SUMMARY | 2024-12-05 01:22 | XMS_ITS | Clinical Summary ---
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
[2024-12-05 02:21] VITALS: BP 122/74; PULSE 99; RESP 18; TEMP 36.6; O2SAT 98
== END 2024-12-05 02:25 | disposition home or self-care (01) ==
PROVIDERS: Emergency Provider Emergency Medicine Emergency Medical Services; PCP Internal Medicine
DX: T78.1XXA Other adverse food reactions, not elsewhere classified, initial encounter (principal); R21 Rash and other nonspecific skin eruption; R07.89 Other chest pain; Z79.899 Other long term (current) drug therapy
CPT/HCPCS: 96372; 96374; 96375; 99284; J0165; J1308; J2919